=== PATIENT | female | born 1945 | race Caucasian/White ===

== ENCOUNTER 2018-11-22 00:56 | Outpatient (CLI) | payer OTHER, SELFPAY ==
--- NOTE | 2018-11-22 13:34 | DI.CTLCSR_ITS ---
SYMPTOM/DIAGNOSIS: CURRENT SMOKER, F17.210, SCREENING FOR LUNG CANCER LOW DOSE CHEST CT FOR LUNG CANCER SCREENING: A low dose technique CT was performed. There are bilateral breast implants. The heart size is normal. There are coronary artery calcifications as well as calcification at the aorta and branch vessels. No pleural or pericardial effusions are seen. There are underlying emphysematous changes, greater at the lung apices. There is mild apical pleural scarring. There is mild scarring at the inferomedial aspects of the lingula and right middle lobe. There are a few pulmonary calcifications. No non calcified pulmonary nodules are seen. IMPRESSION: Lung rads, category 1. Annual low dose screening CT is recommended. Lung-RAD Category: Lung RADS Category 1- Negative
== END 2018-11-22 01:16 ==
PROVIDERS: PCP Family Medicine; Visit Provider Family Medicine
DX: Z12.2 Encounter for screening for malignant neoplasm of respiratory organs (principal); F17.210 Nicotine dependence, cigarettes, uncomplicated; Z98.82 Breast implant status; J98.4 Other disorders of lung; I70.0 Atherosclerosis of aorta
CPT/HCPCS: G0297

== ENCOUNTER 2018-11-24 19:33 | Outpatient (REF) | payer OTHER, SELFPAY ==
[2018-11-24 18:38] LABS: Iron 39 ug/dL (50-175); Total Iron Binding Capacity 305 ug/dL (250-450); Transferrin Sat 13 % (15-50)
== END 2018-11-24 19:53 ==
LOC: NCHCN 19:33
PROVIDERS: PCP Family Medicine; Visit Provider Family Medicine
DX: G25.81 Restless legs syndrome (principal); E61.1 Iron deficiency
CPT/HCPCS: 83540; 83550

== ENCOUNTER 2019-04-27 17:38 | Emergency (ER) | payer OTHER, SELFPAY ==
[2019-04-27 17:38] VITALS: BP 144/53; PULSE 79; RESP 20; TEMP 36.5; O2SAT 93
--- NOTE | 2019-04-27 18:00 | ED.GENADUL_ITS ---
Discharge Plan Disposition Patient Disposition: HOME Condition: Stable Discharge Details Chief Complaint: GI Bleed Clinical Impression: Rectal bleed, Colitis Primary Care Provider: Pavan Ybarra ED Provider: Omega Wylie Home Meds and New Rx's Prescriptions: New ciprofloxacin HCl 500 mg tablet 500 mg PO BID Qty: 14 RF: 0 prednisone 20 mg tablet 60 mg PO DAILY 5 Days Qty: 15 RF: 0 metronidazole [Flagyl] 500 mg tablet 500 mg PO TID Qty: 21 RF: 0 Continued aspirin [Aspir-81] 81 mg tablet,delayed release (DR/EC) 81 mg PO DAILY Qty: 90 RF: 3 nitroglycerin [Nitrostat] 0.4 mg tablet, sublingual 0.4 mg Sublingual Q5 MIN PRN X3 Qty: 25 RF: 5 sumatriptan succinate 50 mg tablet 50 mg PO DAILY Qty: 15 RF: 6 tramadol 50 mg tablet 50 mg PO TID MDD 150 mg PRN (Reason: pain) Qty: 30 RF: 4 lisinopril 20 mg tablet 20 mg PO DAILY Qty: 90 RF: 3 (DME) Nebulizer Qty: 1 RF: 0 ipratropium-albuterol 0.5 mg-3 mg(2.5 mg base)/3 mL solution for nebulization 3 ml IH Q4H PRN (Reason: wheezing) Qty: 180 RF: 3 Os-Richard 500 + D3 1 EACH tablet,chewable 1 ea PO DAILY RF: 0 CHROMIUM GTF 200 MCG tablet 200 mcg PO DAILY RF: 0 B Complex Plus Vitamin C 1 EACH capsule 1 ea PO DAILY RF: 0 nortriptyline 50 mg capsule 50 mg PO QHS Qty: 90 RF: 2 ferrous sulfate 325 mg (65 mg iron) tablet 325 mg PO BID Qty: 180 RF: 1 docusate sodium [Colace] 100 mg capsule 100 mg PO BID PRN (Reason: constipation) Qty: 180 RF: 1 atenolol [Tenormin] 100 mg tablet 100 mg PO BID Qty: 180 RF: 3 lovastatin 40 mg tablet 80 mg PO DAILY Qty: 180 RF: 3 albuterol sulfate [ProAir HFA] 90 mcg/actuation HFA aerosol inhaler 2 puff Inhalation Q4H PRN Qty: 1 RF: 6 Discharge Instructions Instructions: Rectal Bleeding (ED), Colitis (ED) Additional Instructions: follow up with your primary care provider as soon as possible if you have severe worsening pain, feel more weak or chest pain return to the emergency department Medical Decision Making 74 yo female with hx of copd, prior diverticulitis, htn, who comes in with abdominal pain and birght red blood per rectum for a day. She denies fevers, chills, chest pain, weakness. She does have bright red blood on internal rectal exam, no masses. She is tender in the llq no other pain elsehwere. Will obtain imaging to eval for diverticulitis and ct to eval for diverticulitis among other pathology. pt's labs show reassuring h/h. She remains stable, ct shows wall thickened stomach that is likely gastritis but malginancy can't be excluded. Has colitis as well. I recommended admission but pt declined at this time as she dosen't want to have any procedures at this time and wants to go home. She has capacity to make her own decisions and understands risks of leaving including and disability. I am going to start her on tx for the colitis with abx and steroids. I advised to f/u with pcp hardeep and return precautions given Differential Diagnosis Differential Diagnosis: diverticulitis, avm, tumor Medical Records Medical records reviewed: Yes I reviewed the patient's medical records. Imaging Data Radiologic Study: Attestation: I personally reviewed and interpreted this imaging study as follows: Imaging: CT Scan Radiologist's impression: IMPRESSION: 1. Small hiatal hernia. 2. Diffuse wall thickening in the stomach. Finding likely represents gastritis. Please note that malignancy cannot be excluded through imaging. 3. Aneurysmal dilatation of infrarenal aorta measuring 3.5 x 3.1 cm. No evidence of rupture. 4. Significant diffuse wall thickening in the colon extending from mid transverse colon to the rectum. Finding is consistent with colitis. Lab Data Lab results reviewed: Yes I reviewed the patient's lab results. HPI General Mode of arrival: EMS . Date/Time Provider Initiated Documentation: 04/27/19 17:52 . Limitations to Documentation: no limitations . Information obtained by: patient . History of Present Illness 74 year old F presents to the emergency department with the chief complaint of rectal bleeding, described as moderate, and it has been intermittent. No relieving factors improve symptom(s), No exacerbating factors reported . Patient did receive the following treatments prior to arrival, none Related Data Home Medications Medication Instructions Recorded Confirmed Os-Richard 500 + D3 1 ea PO DAILY tab.chew 07/03/12 02/07/19 Chromium Gtf 200 mcg PO DAILY 09/25/13 02/07/19 B Complex Plus Vitamin C 1 ea PO DAILY cap 05/13/15 04/27/19 aspirin 81 mg tablet,delayed 81 mg PO DAILY #90 tab-cap 03/14/18 04/27/19 release nitroglycerin 0.4 mg sublingual 0.4 mg SUBLINGUAL Q5 MIN PRN X3 03/14/18 04/27/19 tablet #25 tab sumatriptan succinate 50 mg tablet 50 mg PO DAILY #15 tab-cap 03/14/18 04/27/19 nortriptyline 50 mg capsule 50 mg PO QHS #90 cap 09/22/18 04/27/19 tramadol 50 mg tablet 50 mg PO TID PRN #30 tab MDD 150 mg 11/24/18 04/27/19 docusate sodium 100 mg capsule 100 mg PO BID PRN #180 cap 11/25/18 04/27/19 ferrous sulfate 325 mg (65 mg 325 mg PO BID #180 tab 11/25/18 04/27/19 iron) tablet Nebulizer #1 ea 12/16/18 02/07/19 ipratropium-albuterol 0.5 mg-3 3 ml IH Q4H PRN #180 ml 12/16/18 04/27/19 mg(2.5 mg base)/3 mL nebulization soln lisinopril 20 mg tablet 20 mg PO DAILY #90 tab 02/07/19 04/27/19 atenolol 100 mg tablet 100 mg PO BID #180 tab 03/17/19 04/27/19 lovastatin 40 mg tablet 80 mg PO DAILY #180 tab-cap 03/17/19 04/27/19 albuterol sulfate 90 mcg/actuation 2 puff INHALATION Q4H PRN #1 unit 03/21/19 04/27/19 aerosol inhaler ciprofloxacin HCl 500 mg PO BID #14 tab 04/27/19 metronidazole [Flagyl] 500 mg PO TID #21 tab 04/27/19 prednisone 60 mg PO DAILY 5 Days #15 tab 04/27/19 Previous Rx's Medication Instructions Recorded aspirin 81 mg tablet,delayed 81 mg PO DAILY #90 tab-cap 03/14/18 release nitroglycerin 0.4 mg sublingual 0.4 mg SUBLINGUAL Q5 MIN PRN X3 03/14/18 tablet #25 tab sumatriptan succinate 50 mg tablet 50 mg PO DAILY #15 tab-cap 03/14/18 nortriptyline 50 mg capsule 50 mg PO QHS #90 cap 09/22/18 tramadol 50 mg tablet 50 mg PO TID PRN #30 tab MDD 150 mg 11/24/18 docusate sodium 100 mg capsule 100 mg PO BID PRN #180 cap 11/25/18 ferrous sulfate 325 mg (65 mg 325 mg PO BID #180 tab 11/25/18 iron) tablet Nebulizer #1 ea 12/16/18 ipratropium-albuterol 0.5 mg-3 3 ml IH Q4H PRN #180 ml 12/16/18 mg(2.5 mg base)/3 mL nebulization soln lisinopril 20 mg tablet 20 mg PO DAILY #90 tab 02/07/19 atenolol 100 mg tablet 100 mg PO BID #180 tab 03/17/19 lovastatin 40 mg tablet 80 mg PO DAILY #180 tab-cap 03/17/19 albuterol sulfate 90 mcg/actuation 2 puff INHALATION Q4H PRN #1 unit 03/21/19 aerosol inhaler ciprofloxacin HCl 500 mg PO BID #14 tab 04/27/19 metronidazole [Flagyl] 500 mg PO TID #21 tab 04/27/19 prednisone 60 mg PO DAILY 5 Days #15 tab 04/27/19 Allergies Allergy/AdvReac Type Severity Reaction Status Date / Time sumatriptan [From Imitrex] Allergy Severe caused Verified 04/27/19 17:42 Heart Attack sumatriptan succinate Allergy Severe caused Verified 04/27/19 17:42 [From Imitrex] Heart Attack chicken derived Allergy Unknown unknown Verified 04/27/19 17:42 Sulfa (Sulfonamide Allergy Unknown unknown Verified 04/27/19 17:42 Antibiotics) amlodipine AdvReac Intermediate orthostatic Verified 04/27/19 17:42 hypotension promethazine HCl AdvReac Unknown GI upset Verified 04/27/19 17:42 [From Phenergan] General Stated Complaint: GI Bleed DONTE: 2 Review of Systems All systems reviewed & are unremarkable except as noted in HPI and below Constitutional Constitutional: Denies chills, Denies fever(s) and Denies weakness ENT Ears, Nose, Mouth, and Throat: Denies change in voice Cardiovascular Cardiovascular: Denies chest pain and Denies dyspnea Respiratory Respiratory: Denies cough and Denies dyspnea Gastrointestinal Gastrointestinal: Denies nausea and Denies vomiting Musculoskeletal Musculoskeletal: Denies joint swelling Neurologic Neurologic: Denies weakness Psychiatric Psychiatric: Denies depression Endocrine Endocrine: Denies cold intolerance and Denies heat intolerance [facility] Medical History (Updated 12/16/18 @ 10:00 by Pavan Ybarra DO) 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) Screening for colon cancer (Acute) Family History Mother , stroke at age 56. No problems noted. Father , HI at age 39. No problems noted. Sister , Cancer at age 60. No problems noted. Sister No problems noted. 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 smoke detector in home: Yes Fire extinguisher in home: Yes Carbon monox detector in home: Yes Do you feel safe at home: Yes Do you feel safe in your relationship?: Yes Exam Const General: no acute distress Orientation: alert HENNV Head: normal to inspection Ears: external ears normal General nose exam: external nose normal Mouth: moist mucous membranes Eyes General: appearance normal, both eyes and all related structures Neck Neck: normal visual inspection Resp Effort & Inspection: normal respiratory effort and able to speak in complete sentences Cardio Rate: regular rate GI Palpation: soft and tender Skin General skin exam: no rashes or lesions noted Neuro General: alert and oriented x3 Extrem General: normal to inspection Psych Mental Status: mental status grossly normal Course Vital Signs Vital signs: Vital Signs Temperature 36.5 C 04/27/19 17:38 Pulse 79 04/27/19 17:38 Respiratory Rate 20 04/27/19 17:38 Blood Pressure 144/53 H 04/27/19 17:38 Pulse Oximetry 93 L 04/27/19 17:38 Temperature 36.5 C 04/27/19 17:38 Temperature Source Temporal Artery Scan 04/27/19 17:38 Pulse 79 04/27/19 17:38 Respiratory Rate 04/27/19 17:38 Respiratory Effort Non-Labored 04/27/19 17:45 Blood Pressure 144/53 H 04/27/19 17:38 Blood Pressure Position Sitting 04/27/19 17:38 Pulse Oximetry 93 L 04/27/19 17:38 Oxygen Delivery Method Room Air 04/27/19 17:38 Oxygen Flow Rate 0 04/27/19 17:38 Pain Level 9 04/27/19 17:38
[2019-04-27] MEDS: Ondansetron 4 MG/2 ML VIAL IVP (18:10)
[2019-04-27] MEDS: fentaNYL 100 MCG/2 ML VIAL 50 MCG IVP (18:11)
[2019-04-27] MEDS: Normal Saline 1,000 ML 1000 ML IV (18:35)
[2019-04-27 18:46] LABS: Lactate 0.8 mmol/L (0.6-1.4)
[2019-04-27 18:48] LABS: Abs Immature Grans 0.05 k/cumm (0.0-0.09); Absolute Basophil Count 0.02 k/cumm (0.0-0.2); Absolute Eosinophil Count 0.03 k/cumm (0.0-0.7); Absolute Lymphocyte Count 1.53 k/cumm (1.2-3.4); Absolute Monocyte Count 0.75 k/cumm (0.11-0.7); Absolute Neutrophil Count 14.38 k/cumm (1.2-6.7); Basophils % 0.1; Eosinophils % 0.2; HCT 47.5 % (36.0-46.0); HGB 16.2 g/dL (12.0-15.5); Immature Grans % 0.3 %; Lymphocytes % 9.1; Mean Corp. HGB Concentration 34.1 g/dL (32.0-36.0); Mean Corpuscular Hemoglobin 30.4 pg (27.0-33.0); Mean Corpuscular Volume 89.1 fL (80-95); Mean Platelet Volume 9.5 fL (8.0-11.0); Monocytes % 4.5; Neutrophils % 85.8; Platelet Count 269 x1000/uL (130-400); RBC 5.33 m/cumm (4.00-5.20); RBC Distribution Width 13.7 % (11.7-14.6); White Blood Cell Count 16.76 k/cumm (4.4-10.8)
[2019-04-27 19:01] LABS: PTT Activated 23.4 sec (21.0-31.4); Prothrombin Time 9.7 sec (9.3-11.0)
[2019-04-27 19:03] LABS: ALT 13 U/L (14-59); AST 18 U/L (15-37); Albumin 3.4 g/dL (3.4-5.0); Alkaline Phosphatase 77 U/L (46-116); BUN 13 mg/dL (7-18); Bilirubin, Total 0.7 mg/dL (0.2-1.0); CREATININE 1.05 mg/dL (0.55-1.02); Calcium 9.2 mg/dL (8.5-10.1); Chloride 101 mmol/L (98-107); Estimated GFR 51.23 (mL/min/1.73m2); Glucose 144 mg/dL (74-106); Lipase 276 U/L (73-393); Potassium 3.6 mmol/L (3.5-5.1); Sodium 140 mmol/L (136-145); Total Protein 7.1 g/dL (6.4-8.2)
--- NOTE | 2019-04-27 19:28 | DI.CT_ITS ---
EXAM: CT ABDOMEN PELVIS W CLINICAL HISTORY: left lower abdominal pain TECHNIQUE: CT examination of the abdomen and pelvis was performed with intravenous infusion of 100 c c of Omnipaque 350. COMPARISON: No exams were available for comparison FINDINGS: The liver and spleen are unremarkable in appearance. Gallbladder is CT normal. There is extrahepat ic biliary dilatation at 9-10 millimeters. Spleen is unremarkable in appearance. Pancreas appears i ntact. No pancreatic ductal dilatation. Adrenals and kidneys are unremarkable. No evidence of urin fredo tract obstruction or calcification. There is a 3.5 cm in diameter infrarenal abdominal aortic aneurysm. Significant calcifications of th e origins of the renal arteries noted bilaterally. Possible proximal SMA stenosis. Stenosis of righ t and left common iliac arteries less than 50 percent luminal diameter. There is question of gastric wall thickening raising the possibility of gastritis. Proximal small светлана wel wall thickening also noted. Ascending colon is unremarkable. Appendix is normal. There is marvin re wall edema with marked pericolonic fat infiltration extending from mid transverse colon to the lev el of the sigmoid suggestive of colitis. Moderate free fluid in the pelvis. IMPRESSION: 1. Possible gastritis and small-bowel enteritis. 2. Severe colitis extending from transverse colon to sigmoid colon, etiology uncertain. 3. 3.5 cm abdominal aortic aneurysm. 4. Mild biliary ductal dilatation, ultrasound correlation suggested.
[2019-04-27] MEDS: Omnipaque 350 MG/ML 100 ML BTL IJ (19:29)
--- NOTE | 2019-04-27 19:44 | DI.VRAD_ITS ---
PROCEDURE INFORMATION: Exam: CT Abdomen And Pelvis With Contrast Exam date and time: 04/27/2019 6:00 PM Age: 74 years old Clinical indication: Localized; Patient HX: Blood in stool x2 days, weakness. Lower abdominal pain. TECHNIQUE: Imaging protocol: Computed tomography of the abdomen and pelvis with intravenous contrast. Radiation optimization: All CT scans at this facility use at least one of these dose optimization techniques: automated exposure control; mA and/or kV adjustment per patient size (includes targeted exams where dose is matched to clinical indication); or iterative reconstruction. Contrast material: OMNIPAQUE 350; Contrast volume: 80 ml; Contrast route: IV; COMPARISON: No relevant prior studies available. FINDINGS: Mediastinum: Small hiatal hernia. Liver: Normal. No mass. Gallbladder and bile ducts: Normal. No calcified stones. No ductal dilation. Pancreas: Normal. No ductal dilation. Spleen: Normal. No splenomegaly. Adrenals: Normal. No mass. Kidneys and ureters: Normal. No hydronephrosis. Stomach and bowel: Diffuse wall thickening in the stomach. Significant diffuse wall thickening in the colon extending from mid transverse colon to the rectum. No wall thickening in the small bowel. No evidence of small bowel obstruction. Appendix: No distended tubular structure in right lower quadrant. No inflammatory changes seen in right lower quadrant. No findings to suggest acute appendicitis. Intraperitoneal space: Small amount of free fluid in pelvis. Findings likely secondary to colitis. Vasculature: Aneurysmal dilatation of infrarenal aorta measuring 3.5 x 3.1 cm. No evidence of rupture. Lymph nodes: Unremarkable. No enlarged lymph nodes. Bladder: Unremarkable as visualized. Reproductive: Unremarkable as visualized. Bones/joints: Degenerative changes in the spine. No evidence of fracture. Soft tissues: Unremarkable. IMPRESSION: 1. Small hiatal hernia. 2. Diffuse wall thickening in the stomach. Finding likely represents gastritis. Please note that malignancy cannot be excluded through imaging. 3. Aneurysmal dilatation of infrarenal aorta measuring 3.5 x 3.1 cm. No evidence of rupture. 4. Significant diffuse wall thickening in the colon extending from mid transverse colon to the rectum. Finding is consistent with colitis. Dictated and Authenticated by: Vega Medrano MD. Ordering:MARLINE Duff MD
[2019-04-27] MEDS: metroNIDAZOLE 500 MG TAB PO (20:02)
[2019-04-27] MEDS: Ciprofloxacin 500 MG TAB PO (20:02)
[2019-04-27] MEDS: predniSONE 20 MG TAB 60 MG PO (20:02)
[2019-04-27 20:03] VITALS: BP 156/72; PULSE 83; RESP 18; TEMP 36.7; O2SAT 94
--- NOTE | 2019-04-27 20:55 | NUR.NOTE ---
Referral faxed to [facility] Dr. Ybarra.Nursing Note:
== END 2019-04-27 20:10 | disposition home or self-care (01) ==
PROVIDERS: Emergency Provider Emergency Medicine; PCP Family Medicine
DX: K62.5 Hemorrhage of anus and rectum (principal); K52.9 Noninfective gastroenteritis and colitis, unspecified; R10.32 Left lower quadrant pain; J44.9 Chronic obstructive pulmonary disease, unspecified; I10 Essential (primary) hypertension; F17.210 Nicotine dependence, cigarettes, uncomplicated
CPT/HCPCS: 36415; 80053; 83690; 96361; 96374; 96375; 99285; 74177; 83605; 85025; 85610; 85730; J2405; J3010; J3490; J7512

== ENCOUNTER 2019-05-03 13:52 | Outpatient (REF) | payer OTHER, SELFPAY ==
[2019-05-04 11:21] LABS: Campylobacter PCR Negative (Negative); Salmonella PCR Negative (Negative); Shiga Toxin PCR Negative (Negative); Shigella/Enteroinvasive Ecoli Negative (Negative)
== END 2019-05-03 14:12 ==
LOC: LBN 13:52
PROVIDERS: PCP Family Medicine; Visit Provider Family Medicine
DX: K52.9 Noninfective gastroenteritis and colitis, unspecified (principal)
CPT/HCPCS: 87329; 87505; 87324

== ENCOUNTER → 2019-07-20 14:21 | Outpatient (BNVA) | payer OTHER, SELFPAY | PROVIDERS: PCP Family Medicine; Referring Provider Family Medicine; Visit Provider Psychiatry & Neurology Neurology | DX: G44.40 Drug-induced headache, not elsewhere classified, not intractable (principal); G25.81 Restless legs syndrome; G43.109 Migraine with aura, not intractable, without status migrainosus; G43.009 Migraine without aura, not intractable, without status migrainosus; G60.9 Hereditary and idiopathic neuropathy, unspecified; E61.1 Iron deficiency; I10 Essential (primary) hypertension; J44.9 Chronic obstructive pulmonary disease, unspecified; F17.210 Nicotine dependence, cigarettes, uncomplicated | CPT/HCPCS: 99205; 99443 ==

== ENCOUNTER 2019-08-15 14:17 | Outpatient (REF) | payer OTHER, SELFPAY ==
[2019-08-15 16:07] LABS: Bilirubin Negative (Negative); Blood Negative (Negative); Clarity Clear (Clear); Glucose Negative (Negative); Ketones Negative (Negative); Leukocyte Esterase Negative (Negative); Nitrite Negative (Negative); Specific Gravity 1.015 (1.005-1.025); Urobilinogen 0.2 EU/dL (Up TO 0.2)
== END 2019-08-15 14:37 ==
LOC: LBN 14:17
PROVIDERS: PCP Family Medicine; Visit Provider Family Medicine
DX: R30.0 Dysuria (principal)
CPT/HCPCS: 81003

== ENCOUNTER → 2019-08-30 13:49 | Outpatient (BNVA) | payer OTHER, SELFPAY | PROVIDERS: PCP Family Medicine; Referring Provider Family Medicine; Visit Provider Psychiatry & Neurology Neurology | DX: G44.40 Drug-induced headache, not elsewhere classified, not intractable; G43.109 Migraine with aura, not intractable, without status migrainosus; G43.009 Migraine without aura, not intractable, without status migrainosus; G60.9 Hereditary and idiopathic neuropathy, unspecified; G25.81 Restless legs syndrome; E61.1 Iron deficiency; J44.9 Chronic obstructive pulmonary disease, unspecified; I10 Essential (primary) hypertension | CPT/HCPCS: 99214 ==

== ENCOUNTER → 2019-10-16 08:39 | Outpatient (BNVA) | payer OTHER, SELFPAY | PROVIDERS: PCP Family Medicine; Referring Provider Family Medicine; Visit Provider Nurse Practitioner Adult Health | DX: G43.901 Migraine, unspecified, not intractable, with status migrainosus (principal); G44.40 Drug-induced headache, not elsewhere classified, not intractable; J44.9 Chronic obstructive pulmonary disease, unspecified; I10 Essential (primary) hypertension | CPT/HCPCS: 99213; J1885; 96372 ==

== ENCOUNTER 2019-10-18 02:19 | Outpatient (CLI) | payer OTHER, SELFPAY ==
--- NOTE | 2019-10-18 08:15 | DI.RAD_ITS ---
EXAM: XR LUMBAR SPINE COMPLETE CLINICAL HISTORY: Worsening chronic pain, mid lumbar spine, lumbago, M54.5. TECHNIQUE: 2D digital imaging was performed. COMPARISON: No exams were available for comparison FINDINGS: There are 5 lumbar type vertebral bodies. No spondylolysis or spondylolisthesis is seen. There is d isc space narrowing at L1-L2. There are osteophytes at the endplates throughout the lumbar spine the re is facet arthropathy throughout the lumbar spine. No acute fractures or subluxations of the lumba r spine are noted. There is a mild scoliosis of thoracolumbar spine. There is an infrarenal abdomin al aortic aneurysm measuring 4 cm. IMPRESSION: 1. Moderately severe degenerative changes in the lumbar spine. 2. Infrarenal abdominal aortic aneurysm. Ultrasound or CT scan may be obtained for further evaluatio n. DATA REPOSITORY: RADIATION DOSE DELIVERED:
== END 2019-10-18 02:39 ==
PROVIDERS: PCP Family Medicine; Visit Provider Family Medicine
DX: M54.5 Low back pain (principal); G89.29 Other chronic pain; M51.36 Other intervertebral disc degeneration, lumbar region; M47.816 Spondylosis without myelopathy or radiculopathy, lumbar region; I71.4 Abdominal aortic aneurysm, without rupture
CPT/HCPCS: 72110

== ENCOUNTER 2019-11-13 01:25 | Outpatient (CLI) | payer OTHER, SELFPAY ==
--- NOTE | 2019-11-13 07:15 | DI.US_ITS ---
EXAM: US AAA DIAGNOSTIC CLINICAL HISTORY: 4 cm incidental finding on xray, needs follow-uP,AAA,I71.4 COMPARISON: No exams were available for comparison FINDINGS: Abdominal Aorta: Proximal: 2.7 cm Mid: 2.6 cm Distal: 3.3 cm Iliac's: Right: 0.8 cm Left: 0.9 cm There is calcification along the wall of the aorta. There is mural thrombus seen distally. IMPRESSION: 3.3 centimeter abdominal aortic aneurysm. DATA REPOSITORY:
== END 2019-11-13 01:45 ==
PROVIDERS: PCP Family Medicine; Visit Provider Family Medicine
DX: I71.4 Abdominal aortic aneurysm, without rupture (principal)
CPT/HCPCS: 76775

== ENCOUNTER → 2019-12-07 09:01 | Outpatient (BNVA) | payer OTHER, SELFPAY | PROVIDERS: PCP Family Medicine; Referring Provider Family Medicine; Visit Provider Nurse Practitioner Adult Health | DX: G43.009 Migraine without aura, not intractable, without status migrainosus (principal); I10 Essential (primary) hypertension | CPT/HCPCS: 99212 ==

== ENCOUNTER 2020-09-12 11:19 | Outpatient (CLI) | payer OTHER, SELFPAY ==
--- NOTE | 2020-09-12 09:07 | DI.RAD_ITS ---
Exam(s) XR HIP RT COMPLETE AP PELVIS EXAM: XR HIP RT COMPLETE AP PELVIS CLINICAL HISTORY: ACUTE RT HIP PAIN, M25.551 TECHNIQUE: COMPARISON: No exams were available for comparison FINDINGS: Four views were obtained. There appears to be slight narrowing of the cartilaginous joint spaces of both hips superiorly. Mild marginal osteophyte formation of the femoral heads and acetabula noted. Moderate hypertrophic spurring of the greater trochanters of the femurs also noted bilaterally. IMPRESSION: Mild DJD both hips. RADIATION DOSE DELIVERED: Total DLP
== END 2020-09-12 11:39 ==
PROVIDERS: PCP Family Medicine; Visit Provider Internal Medicine
DX: M25.551 Pain in right hip (principal); M16.0 Bilateral primary osteoarthritis of hip
CPT/HCPCS: 73502

== ENCOUNTER → 2020-10-10 03:04 | Outpatient (CLI) | payer OTHER, SELFPAY ==
--- NOTE | 2020-10-10 07:15 | DI.MRI_ITS ---
Exam(s) MR LOWER JOINT RT WO EXAM: MR LOWER JOINT RT WO CLINICAL HISTORY: Acute R-sided hip pain, r/o stress frx.M25.551 TECHNIQUE: Multiplanar multisequence MRI of the right hip was performed. COMPARISON: CR XR HIP RT COMPLETE AP PELVIS from 09/12/2020 CR XR HIP RT COMPLETE AP PELVIS from 09/12/2020 FINDINGS: EFFUSION: There is a minimal amount of increased joint fluid but no prominent hip joint effusion. MARROW: There is no evidence of fracture or avascular necrosis. No lytic osseous lesions. No osteo phytes. ARTICULATION: Mild generalized cartilage loss. There are no degenerative subarticular cysts in the a cetabulum nor in the right femoral head. No obvious osteophytes. There is a small bony excrescence off the anterior aspect of the femoral neck at the head-neck junction. No abnormal thickening of the ligamentum teres nor prominent signal abnormality at the fovea centrali s. LABRUM: Fluid signal is seen interposed between the glenoid and labrum superiorly, consistent with la bral tear at this level. There is no paralabral cyst. SOFT TISSUES: Mild increased signal in the gluteus medius tendon. No prominent fluid collection. No abnormal intraosseous signal in the greater trochanter. No evidence of iliopsoas bursitis. No abnormal signal at the level of the ischial tuberosity and common hamstrings tendon insertion. No abnormal intramuscular signal. No regional lymphadenopathy. IMPRESSION: 1. Mild degenerative changes. Superior labral tearing. No paralabral cyst. 2. No degenerative subarticular cyst nor osteophytes evident although there is a small bony excrescen ce off the anterior femoral neck which may indicate an element of chronic CAM-type AYSE. 3. No evidence of avascular necrosis or stress fracture. No osseous lesions 4. No prominent joint effusion DATA REPOSITORY:
== END ==
PROVIDERS: PCP Family Medicine; Visit Provider Family Medicine
DX: S73.101A Unspecified sprain of right hip, initial encounter (principal); M16.11 Unilateral primary osteoarthritis, right hip; X58.XXXA Exposure to other specified factors, initial encounter
CPT/HCPCS: 73721

== ENCOUNTER 2022-01-27 13:30 | Emergency (ER) | payer MEDICARE, SELFPAY ==
[2022-01-27 13:45] VITALS: BP 188/96; PULSE 66; RESP 18; TEMP 36.7; O2SAT 98
--- NOTE | 2022-01-27 14:00 | DI.CT_ITS ---
Exam(s) CT ABDOMEN PELVIS W EXAM: CT ABDOMEN PELVIS W INDICATION: left flank and lower quadrant pain. COMPARISON: CT CT ABDOMEN PELVIS W from 04/27/2019 TECHNIQUE: FINDINGS: CT examination of the abdomen and pelvis was performed with intravenous infusion of 100 cc of Omnipaq ue 350. Images obtained through the lung bases are unremarkable. The liver is unremarkable in appearance. Gallbladder is unremarkable, there is mild biliary dilatation with the common duct measuring about 12 millimeters in greatest diameter, this finding was also noted on examination of April 2019.. Pancreas appears normal. Spleen is unremarkable in appearance. Adrenals appear normal. Right kidney appears normal, no right hydronephrosis, nephrolithiasis, or renal mass. There is severe left hydronephrosis, there is probable obstruction at the level of the UPJ. There is moderate perinephric fluid collection on the left presumably in disc gating caliceal rupture. No de finite calcification identified in left kidney or ureter. Nephrogram appears symmetrical with the ri ght kidney.urinary bladder unremarkable. Abdominal aorta is mildly aneurysmal at 3.5 cm diameter, moderate atheromatous changes noted in the a bdominal arterial vasculature period and no other major vascular abnormality is seen. No abdominal wall hernia. No abdominal or pelvic adenopathy. Uterus is atrophic or absent. Appendix is not specifically visualized but there is no evidence of appendicitis... No evidence of d iverticulitis or bowel obstruction. There is a small quantity of free fluid pelvis. IMPRESSION: Severe left hydronephrosis with perinephric fluid collection as described above. Presumed obstructio n at the level of the UPJ. No definite stone disease. Stable mild dilatation of extrahepatic biliary ductal system. RADIATION DOSE DELIVERED: 496.2mGy.cm Total DLP 496.2mGy.cm Total DLP !Error CTDIvol RADIATION OPTIMIZATION: All CT scans at this facility use at least one of these dose optimization te chniques: automated exposure control; mA and/or kV adjustment per patient size (includes targeted exa ms where dose is matched to clinical indication); or iterative reconstruction.
[2022-01-27] MEDS: Normal Saline 500 ML IV (14:32)
[2022-01-27] MEDS: fentaNYL 100 MCG/2 ML VIAL 50 MCG IVP ×2 (14:33→16:28)
[2022-01-27 14:47] LABS: Bilirubin Negative (Negative); Blood Negative (Negative); Clarity Clear (Clear); Glucose Negative (Negative); Ketones Negative (Negative); Leukocyte Esterase Negative (Negative); Nitrite Negative (Negative); Urobilinogen 0.2 EU/dL (Up TO 0.2)
[2022-01-27 14:47] LABS: Abs Immature Grans 0.07 10^3/uL (0.0-0.06); Absolute Basophil Count 0.08 10^3/uL (0.0-0.2); Absolute Monocyte Count 0.75 10^3/uL (0.1-0.8); Absolute Neutrophil Count 12.45 10^3/uL (1.2-6.7); Basophils % 0.5; Eosinophils % 0.9; HCT 48.8 % (36.0-46.0); HGB 16.1 g/dL (11.2-15.7); Immature Grans % 0.5; Lymphocytes % 11.8; MCH 29.3 pg (27.0-33.0); MCV 89 fL (80-95); MPV 9.2 fL (8.0-11.0); Monocytes % 4.9; Neutrophils % 81.4; Platelet Count 290 10^3/uL (130-400); RDW 13.2 % (11.7-14.6); RDW-SD 43.2 fL; WBC 15.29 10^3/uL (4.4-10.8)
[2022-01-27 14:48] LABS: Absolute Eosinophil Count 0.14 10^3/uL (0.0-0.7)
[2022-01-27 15:01] LABS: ALT 14 U/L (14-59); AST 21 U/L (15-37); Albumin 3.7 g/dL (3.4-5.0); Alkaline Phosphatase 70 U/L (46-116); Anion Gap 5.5 mmol/L (3-11); BUN 10 mg/dL (7-18); Bilirubin, Total 0.8 mg/dL (0.2-1.0); CO2 32.5 mmol/L (21.0-32.0); CREATININE 1.1 mg/dL (0.55-1.02); Calcium 9.7 mg/dL (8.5-10.1); Chloride 99 mmol/L (98-107); Estimated GFR 52.08 (mL/min/1.73m2); Glucose 123 mg/dL (74-106); Lipase 266 U/L (73-393); Potassium 4.1 mmol/L (3.5-5.1); Sodium 137 mmol/L (136-145); Total Protein 7.8 g/dL (6.4-8.2)
--- NOTE | 2022-01-27 15:35 | ED.GENADUL_ITS ---
Discharge Plan Disposition Patient Disposition: HOME Condition: Serious Discharge Details Clinical Impression: Obstruction of left ureteropelvic junction (UPJ), Hydronephrosis, left Primary Care Provider: Pavan Ybarra ED Provider: Shereen Thomason Home Meds and New Rx's Prescriptions: Continued aspirin [Aspir-81] 81 mg tablet,delayed release (DR/EC) 81 mg PO DAILY Qty: 90 3RF Hold Instructions: Home Medication placed on hold at Doctor's office nitroglycerin [Nitrostat] 0.4 mg tablet, sublingual 0.4 mg Sublingual Q5 MIN PRN X3 Qty: 25 5RF Hold Instructions: Home Medication placed on hold at Doctor's office Rx Instructions: take one tab for chest pain, call 911, may repeat tab q5mins prn for two more doses lovastatin 40 mg tablet 80 mg PO DAILY Qty: 180 3RF Hold Instructions: Home Medication placed on hold at Doctor's office Rx Instructions: two tablets daily to reduce risk of recurrent cardiovascular events (DME) Nebulizer Qty: 1 0RF Rx Instructions: As directed, Q4 prn dyspnea ipratropium-albuterol 0.5 mg-3 mg(2.5 mg base)/3 mL solution for nebulization 3 ml IH Q4H PRN (Reason: wheezing) Qty: 180 3RF naproxen 500 mg tablet 500 mg PO BID PRN (Reason: pain) Qty: 60 0RF atenolol 100 mg tablet 100 mg PO DAILY Qty: 90 3RF tramadol 50 mg tablet 50 mg PO TID PRN (Reason: pain) Qty: 30 3RF Os-Richard 500 + D3 1 EACH tablet,chewable 1 ea PO DAILY Hold Instructions: Home Medication placed on hold at Doctor's office B Complex Plus Vitamin C 1 EACH capsule 1 ea PO DAILY Hold Instructions: Home Medication placed on hold at Doctor's office lisinopril 20 mg tablet 20 mg PO DAILY Qty: 90 3RF Hold Instructions: Home Medication placed on hold at Doctor's office albuterol sulfate [ProAir HFA] 90 mcg/actuation HFA aerosol inhaler 2 puff Inhalation Q4H PRN Qty: 2 6RF Rx Instructions: for reactive airways, wheezing Discharge Instructions Instructions: Kidney Stones (ED), Hydronephrosis (ED) Additional Instructions: Please call the urology office in the morning to have an appointment in the next 24 to 48 hours. Take the medications as directed. Please return to the ER any sooner for worsening pain, fever unable to get in with urology, or any concerns. The CT shows an obstruction in your left ureter and fluid back up into your left kidney.. Follow up with Primary care /Urology in 24-48 hours. Referrals: Ralph Kwong MD [ [facility] STAFF PHYSICIAN] - 1 day Discharge Data Discharge Date/Time-TO BE ENTERED AT DEPARTURE: 01/27/22 21:04 Medical Decision Making <SHERLY Strong - Last Filed: 01/28/22 09:26> Patient appears well but is exquisitely tender in her left lower quadrant, she is pending CT scan at this time She is received 50 of fentanyl Care of a transition to [facility] pending CT scan <Shereen Thomason NP - Last Filed: 01/27/22 21:23> Medical Records Medical records reviewed: Yes I reviewed the patient's medical records. Medical records narrative: 1612: Care assumed from provider (SHERLY Strong) Please see their initial HPI, PE, and documentation. Discussed patient details and case and pending workup and disposition. Patient is hemodynamically stable, and alert and or iented. At the time of signout patient is having episode of emesis Zofran was ordered by my colleague in the EKG. At the time of signout we are awaiting CT abdomen pelvis. 1904: Spoke with Patient and family regarding CT results, they verbalized understanding. 1905: [facility] contacted for Urology consult and transfer request. 1936: Dr. Gatica with urology at [facility] consulted, she recommends it is reasonable for reevaluation proximately 24 hours for possible stent placement she does not recommend emergent transfer for stent placement at this time. I will discuss possible admission with patient for pain control and observation repeat labs. Discussed plan of care with patient and recommendations. She does not want to be admitted into the hospital but is willing to have close follow-up with urology in the next 24 to [address] her on a care management list and send her home with pain medication and nausea medication. I did also encourage her to return to ER if she is unable to get in with urology. Imaging Data Radiologic Study: Imaging: CT Scan Radiologist's impression: COMPARISON: CT ABDOMEN PELVIS W 04/27/2019 7:28 PM FINDINGS: Lungs: Scarring at the lung bases associated with significant emphysematous disease. Liver: Homogeneously enhances without mass. Gallbladder and bile ducts: Status post cholecystectomy. Mild intra and extrahepatic biliary dilatation. No calcified stone within the common bile duct. Pancreas: No mass or peripancreatic edema. Spleen: Homogeneously enhances. No splenomegaly. Adrenal glands: No adrenal nodule. Kidneys and ureters: There is significant left-sided hydronephrosis which can be followed to the left ureteral pelvic junction. There is a mild to moderate amount of left perinephric fluid which extends inferiorly into the infrarenal space. There are relatively symmetric nephrograms. No definite renal or ureteral stone. Stomach and bowel: Moderate fecal loading. No bowel wall thickening or dilatation. Appendix: No evidence of appendicitis. Intraperitoneal space: Small amount of free fluid in the pelvis. No free intraperitoneal air. Vasculature: There is a stable infrarenal abdominal aortic aneurysm which measures up to 3.5 cm and contains a moderate amount of thrombus. No signs of impending aortic rupture. Lymph nodes: No significant adenopathy. Urinary bladder: No definite bladder wall thickening. Reproductive: Status post hysterectomy. Bones/joints: Lower lumbar facet arthropathy. Significant degenerative disc disease at the thoracolumbar junction. Additional degenerative disc disease at L5-S1. Soft tissues: Extra-abdominal soft tissues are unremarkable. IMPRESSION: 1. Obstruction at the level of the left ureteral pelvic junction with associated probable pyelosinus reflux from caliceal rupture and secondary free fluid. 2. Stable 3.5 cm infrarenal abdominal aortic aneurysm. Thank you for allowing us to participate in the care of your patient. Dictated and Authenticated by: Hakan Chu MD Lab Data Lab results reviewed: Yes I reviewed the patient's lab results. Labs: Laboratory Tests Range/Units 01/27/22 01/27/22 01/27/22 14:20 14:30 14:30 WBC (4.4-10.8) 10^3/uL 15.29 H RBC (3.93-5.22) 10^6/uL 5.50 H Hgb (11.2-15.7) g/dL 16.1 H Hct (36.0-46.0) % 48.8 H MCV (80-95) fL 89 MCH (27.0-33.0) pg 29.3 MCHC (32.0-36.0) % 33.0 RDW (11.7-14.6) % 13.2 Plt Count (130-400) 10^3/uL 290 MPV (8.0-11.0) fL 9.2 Immature Gran % 0.5 Neutrophils % 81.4 Lymphocytes % 11.8 Monocytes % 4.9 Eosinophils % 0.9 Basophils % 0.5 Nucleated RBC % (0.0-0.3) % 0.0 Absolute Neutrophils (1.2-6.7) 10^3/uL 12.45 H Absolute Lymphocytes (1.2-3.4) 10^3/uL 1.80 Absolute Monocytes (0.1-0.8) 10^3/uL 0.75 Absolute Eosinophils (0.0-0.7) 10^3/uL 0.14 Absolute Basophils (0.0-0.2) 10^3/uL 0.08 Sodium (136-145) mmol/L 137 Potassium (3.5-5.1) mmol/L 4.1 Chloride (98-107) mmol/L 99 Carbon Dioxide (21.0-32.0) mmol/L 32.5 H Anion Gap (3-11) mmol/L 5.5 BUN (7-18) mg/dL 10 Creatinine (0.55-1.02) mg/dL 1.1 H Est GFR (CKD-EPI 2020) (mL/min/1.73m2) 52.08 Glucose (74-106) mg/dL 123 H Calcium (8.5-10.1) mg/dL 9.7 Total Bilirubin (0.2-1.0) mg/dL 0.8 AST (15-37) U/L 21 ALT (14-59) U/L 14 Alkaline Phosphatase (46-116) U/L 70 Total Protein (6.4-8.2) g/dL 7.8 Albumin (3.4-5.0) g/dL 3.7 Lipase (73-393) U/L 266 Urine Color (Yellow) Yellow Urine Clarity (Clear) Clear Urine pH (5-8) 7.0 Ur Specific [place] (1.005-1.025) 1.020 Urine Protein (Negative) mg/dL Negative Urine Ketones (Negative) mg/dL Negative Urine Blood (Negative) Negative Urine Nitrite (Negative) Negative Urine Bilirubin (Negative) Negative Urine Urobilinogen (Up TO 0.2) EU/dL 0.2 Ur Leukocyte Esterase (Negative) Negative Urine Glucose (Negative) mg/dL Negative HPI <SHERLY Strong - Last Filed: 01/28/22 09:26> General Date/Time Provider Initiated Documentation: 01/27/22 14:09 . HPI Narrative: This 76-year-old female with history of COPD hyperlipidemia, hypertension, peripheral neuropathy, AAA presents with left lower quadrant pain. She states that this pain has been going on for the past 2 days. She denies history of similar pain in the past. Exacerbated with position change at night for movement. She denies any nausea or vomiting. She denies any urinary complaints. She describes the pain as sharp. Related Data Home Medications Medication Instructions Recorded Confirmed calcium carbonate-vitamin D3 500 1 ea PO DAILY 07/03/12 01/27/22 mg(1,250 mg)-600 unit chewable tablet (Os-Richard 500 + D3) vitamin B comp and C no.3 15 mg-10 1 ea PO DAILY 05/13/15 01/27/22 mg-50 mg-5 mg-300 mg capsule (B Complex Plus Vitamin C) aspirin 81 mg tablet,delayed 81 mg PO DAILY #90 tab-caps 03/14/18 01/27/22 release (Aspir-) nitroglycerin 0.4 mg sublingual 0.4 mg sublingual Q5 MIN PRN X3 03/14/18 01/27/22 tablet (Nitrostat) #25 tabs Nebulizer #1 ea 12/16/18 01/27/22 ipratropium 0.5 mg-albuterol 3 mg 3 ml inhalation Q4H PRN wheezing 12/16/18 01/27/22 (2.5 mg base)/3 mL nebulization #180 mL soln lovastatin 40 mg tablet 80 mg PO DAILY #180 tab-caps 03/04/20 01/27/22 naproxen 500 mg tablet 500 mg PO BID PRN pain #60 tabs 10/03/20 01/27/22 atenolol 100 mg tablet 100 mg PO DAILY #90 tabs 05/27/21 01/27/22 tramadol 50 mg tablet 50 mg PO TID PRN pain #30 tabs 11/11/21 01/27/22 albuterol sulfate 90 mcg/actuation 2 puff inhalation Q4H PRN 01/21/22 01/27/22 aerosol inhaler (ProAir HFA) wheezing, shortness of breath #2 units lisinopril 20 mg tablet 20 mg PO DAILY #90 tabs 01/21/22 01/27/22 Previous Rx's Medication Instructions Recorded aspirin 81 mg tablet,delayed 81 mg PO DAILY #90 tab-caps 03/14/18 release (Aspir-) nitroglycerin 0.4 mg sublingual 0.4 mg sublingual Q5 MIN PRN X3 03/14/18 tablet (Nitrostat) #25 tabs Nebulizer #1 ea 12/16/18 ipratropium 0.5 mg-albuterol 3 mg 3 ml inhalation Q4H PRN wheezing 12/16/18 (2.5 mg base)/3 mL nebulization #180 mL soln lovastatin 40 mg tablet 80 mg PO DAILY #180 tab-caps 03/04/20 naproxen 500 mg tablet 500 mg PO BID PRN pain #60 tabs 10/03/20 atenolol 100 mg tablet 100 mg PO DAILY #90 tabs 05/27/21 tramadol 50 mg tablet 50 mg PO TID PRN pain #30 tabs 11/11/21 albuterol sulfate 90 mcg/actuation 2 puff inhalation Q4H PRN 01/21/22 aerosol inhaler (ProAir HFA) wheezing, shortness of breath #2 units lisinopril 20 mg tablet 20 mg PO DAILY #90 tabs 01/21/22 Allergies Allergy/AdvReac Type Severity Reaction Status Date / Time sumatriptan [From Imitrex] Allergy Severe caused Verified 01/27/22 13:49 Heart Attack chicken derived Allergy Unknown unknown Verified 01/27/22 13:49 Sulfa (Sulfonamide Allergy Unknown unknown Verified 01/27/22 13:49 Antibiotics) amlodipine AdvReac Intermediate orthostatic Verified 01/27/22 13:49 hypotension promethazine HCl AdvReac Unknown GI upset Verified 01/27/22 13:49 [From Phenergan] General Stated Complaint: Abd Prob DONTE: 3 Review of Systems <SHERLY Strong - Last Filed: 01/28/22 09:26> All systems reviewed & are unremarkable except as noted in HPI and below PFSH <SHERLY Strong - Last Filed: 01/28/22 09:26> All Active Problems (Updated 01/27/22 @ 19:45 by Shereen Thomason NP) Obstruction of left ureteropelvic junction (UPJ) (Acute) Hydronephrosis, left (Acute) Degenerative tear of acetabular labrum of right hip (Acute) MRI 10/07 AAA (abdominal aortic aneurysm) (Chronic) Incidental 4 cm finding in October 2019 Iron deficiency (Acute) Chronic low back pain (Acute 04/19/70) initial industrial accident in [place] ~1970; sacral/lumbar Chronic alcoholism in remission (Acute 10/24/12) no alcohol since 1981 Atherosclerosis of [place] coronary artery of [place] heart without angina pectoris (Acute 04/19/97) First [place] 1997; stent Apr 1999 RCA 90%, [facility]; MPI 07/2008: neg ischemia, nl wall motion; EF 74% History of Surgical Procedure (Chronic) a. Left rotator cuff surgery. b. Bilateral mastectomy. c. Abdominal hysterectomy. d. Carpal tunnel release surgery. CAD (coronary artery disease) (Chronic) Fibromyalgia (Chronic) Hypertension (Chronic) Hyperlipidemia (Chronic) GERD (gastroesophageal reflux disease) (Chronic) Restless legs syndrome (Chronic) Tobacco dependence (Acute 06/18/11) Idiopathic peripheral neuropathy (Acute 06/18/11) Non-rheumatic mitral regurgitation (Acute) mild on ECHO [facility] 2009; Repeat 03/2016: mild MR, TR, mod incr PA pressure Osteoporosis, unspecified (Acute 06/18/11) Other chronic pain (Acute 06/18/11) OPIATES OFF AND ON SINCE 1970; AT LEAST from 2005 to Mar 2014; TRAMADOL DAYS PRN; extra strength tylenol Migraine headache without aura (Acute) Migraine headache with aura (Acute) Chronic headache (Acute) Medication overuse headache (Acute) 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) Screening for colon cancer (Acute) Angina pectoris (Acute 12/04/13) Migraine, unspecified, not intractable, without status migrainosus (Acute 06/18/11) last neuro [place] 01/2009 Pain, joint, multiple sites (Acute 06/18/11) paraspinal thoracic pain Extrapyramidal and movement disorder, unspecified (Acute 06/18/11) REstless Leg Syndrome Dry skin (Acute 03/06/16) Dermatitis (Acute 06/18/11) Chronic daily headache (Acute 07/19/15) Adjustment disorder, unspecified (Acute 04/27/16) Adenomatous polyp of colon (Acute 06/18/03) Saige Giordano, tubular adenoma rectum 2003; rpt 2008 neg, rpt 11/2013 neg for polyps, ? when repeat, neg FH Dyspnea (Acute) COPD (chronic obstructive pulmonary disease) (Chronic) Diverticulitis (Chronic) Pain, low back (Chronic) Surgical History H/O heart artery stent H/O resection of rib S/P bilateral breast implants S/p bilateral carpal tunnel release S/P bilateral mastectomy for cystic disease S/P craniotomy S/P hysterectomy S/P rotator cuff repair bilateral Family History Daughter Alcohol abuse Chronic headache Father Heart disease Mother Alcohol abuse Social History (Updated 09/19/20 @ 09:34 by Marli Gamez LPN) Smoking/Tobacco Use Status: Current every day Tobacco: How many years used: 68 Quit status: not considering quitting Smoking risk assessment performed?: Yes Alcohol Intake: never Drug use: Never Substance use type: does not use Household members: children Housing: house Number of Children: 2 Communication Needs: Corrective Lenses Pets and animals: Yes Pets and animals: cat(s) Current gender identity: female What is your relationship status?: Panel score (0-1 are the most socially isolated patients): 0 What type of physical activity do you participate in: none Seatbelt use: always 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 Working smoke detector in home: Yes Fire extinguisher in home: Yes Carbon monox detector in home: Yes Do you feel safe at home: Yes Do you feel safe in your relationship?: Yes Exam <SHERLY Strong - Last Filed: 01/28/22 09:26> Const General: cooperative, comfortable and frail appearing Eyes Sclera: sclerae normal Resp Effort & Inspection: normal respiratory effort Auscultation: clear to auscultation bilaterally Cardio Rate: regular rate Rhythm: regular rhythm GI Other: Left CVA and left lower quadrant tenderness on exam Skin General skin exam: no rashes or lesions noted Neuro General: patient alert and patient oriented x3 Extrem General: normal to inspection Course <SHERLY Strong - Last Filed: 01/28/22 09:26> Vital Signs Vital signs: Vital Signs Temperature 36.7 C 01/27/22 13:45 Pulse 66 01/27/22 13:45 Respiratory Rate 18 01/27/22 13:45 Blood Pressure 188/96 H 01/27/22 13:45 Pulse Oximetry 98 01/27/22 13:45 Temperature 36.7 C 01/27/22 13:45 Temperature Source Temporal Artery Scan 01/27/22 13:45 Pulse 66 01/27/22 13:45 Respiratory Rate 18 01/27/22 13:45 Respiratory Effort Non-Labored 01/27/22 13:50 Blood Pressure 188/96 H 01/27/22 13:45 Blood Pressure Position Sitting 01/27/22 13:45 Pulse Oximetry 98 01/27/22 13:45 Oxygen Delivery Method Room Air 01/27/22 13:45 Oxygen Flow Rate 0 01/27/22 13:45 Pain Level 9 01/27/22 14:43 Lab/Test Results Lab/Test Results: Laboratory Tests Range/Units 01/27/22 01/27/22 01/27/22 14:20 14:30 14:30 WBC (4.4-10.8) 10^3/uL 15.29 H RBC (3.93-5.22) 10^6/uL 5.50 H Hgb (11.2-15.7) g/dL 16.1 H Hct (36.0-46.0) % 48.8 H MCV (80-95) fL 89 MCH (27.0-33.0) pg 29.3 MCHC (32.0-36.0) % 33.0 RDW (11.7-14.6) % 13.2 Plt Count (130-400) 10^3/uL 290 MPV (8.0-11.0) fL 9.2 Immature Gran % 0.5 Neutrophils % 81.4 Lymphocytes % 11.8 Monocytes % 4.9 Eosinophils % 0.9 Basophils % 0.5 Nucleated RBC % (0.0-0.3) % 0.0 Absolute Neutrophils (1.2-6.7) 10^3/uL 12.45 H Absolute Lymphocytes (1.2-3.4) 10^3/uL 1.80 Absolute Monocytes (0.1-0.8) 10^3/uL 0.75 Absolute Eosinophils (0.0-0.7) 10^3/uL 0.14 Absolute Basophils (0.0-0.2) 10^3/uL 0.08 Sodium (136-145) mmol/L 137 Potassium (3.5-5.1) mmol/L 4.1 Chloride (98-107) mmol/L 99 Carbon Dioxide (21.0-32.0) mmol/L 32.5 H Anion Gap (3-11) mmol/L 5.5 BUN (7-18) mg/dL 10 Creatinine (0.55-1.02) mg/dL 1.1 H Est GFR (CKD-EPI 2020) (mL/min/1.73m2) 52.08 Glucose (74-106) mg/dL 123 H Calcium (8.5-10.1) mg/dL 9.7 Total Bilirubin (0.2-1.0) mg/dL 0.8 AST (15-37) U/L 21 ALT (14-59) U/L 14 Alkaline Phosphatase (46-116) U/L 70 Total Protein (6.4-8.2) g/dL 7.8 Albumin (3.4-5.0) g/dL 3.7 Lipase (73-393) U/L 266 Urine Color (Yellow) Yellow Urine Clarity (Clear) Clear Urine pH (5-8) 7.0 Ur Specific [place] (1.005-1.025) 1.020 Urine Protein (Negative) mg/dL Negative Urine Ketones (Negative) mg/dL Negative Urine Blood (Negative) Negative Urine Nitrite (Negative) Negative Urine Bilirubin (Negative) Negative Urine Urobilinogen (Up TO 0.2) EU/dL 0.2 Ur Leukocyte Esterase (Negative) Negative Urine Glucose (Negative) mg/dL Negative Sign Out <SHERLY Strong - Last Filed: 01/28/22 09:26> Sign Out Data: Sign Out Comment: pending ct abd/pelvis Last updated by Keira Saldaña PA at 01/27/22 16:10
--- NOTE | 2022-01-27 16:00 | RT.EKG_ITS ---
APPROVED REPORT Exam: Resting ECG Reason for Exam: nausea and vomiting Patient Location: E HR:59 bpm ECG Measurements Heart Rate 59 AXIS ID 152 P 82 QRSd 79 QRS 81 QT 426 T 72 QTc 423 Conclusion Sinus bradycardia...rate< 60 Consider left ventricular hypertrophy...(R aVL+S V3) >2.20mV
[2022-01-27] MEDS: Ondansetron 4 MG/2 ML VIAL IVP (16:29)
[2022-01-27] MEDS: Normal Saline 1,000 ML 1000 ML IV (16:31)
[2022-01-27 16:32] VITALS: BP 154/127; PULSE 62; RESP 20; O2SAT 96
[2022-01-27] MEDS: Omnipaque 350 MG/ML 100 ML BTL IJ (17:25)
--- NOTE | 2022-01-27 18:54 | DI.VRAD_ITS ---
PROCEDURE INFORMATION: Exam: CT Abdomen And Pelvis With Contrast Exam date and time: 01/27/2022 5:11 PM Age: 76 years old Clinical indication: Pain; Other: Flank TECHNIQUE: Imaging protocol: Computed tomography of the abdomen and pelvis with contrast. Total images: 1130 Radiation optimization: All CT scans at this facility use at least one of these dose optimization techniques: automated exposure control; mA and/or kV adjustment per patient size (includes targeted exams where dose is matched to clinical indication); or iterative reconstruction. Contrast material: OMNIPQUE 350; Contrast volume: 100 ml; Contrast route: INTRAVENOUS (IV); COMPARISON: CT ABDOMEN PELVIS W 04/27/2019 7:28 PM FINDINGS: Lungs: Scarring at the lung bases associated with significant emphysematous disease. Liver: Homogeneously enhances without mass. Gallbladder and bile ducts: Status post cholecystectomy. Mild intra and extrahepatic biliary dilatation. No calcified stone within the common bile duct. Pancreas: No mass or peripancreatic edema. Spleen: Homogeneously enhances. No splenomegaly. Adrenal glands: No adrenal nodule. Kidneys and ureters: There is significant left-sided hydronephrosis which can be followed to the left ureteral pelvic junction. There is a mild to moderate amount of left perinephric fluid which extends inferiorly into the infrarenal space. There are relatively symmetric nephrograms. No definite renal or ureteral stone. Stomach and bowel: Moderate fecal loading. No bowel wall thickening or dilatation. Appendix: No evidence of appendicitis. Intraperitoneal space: Small amount of free fluid in the pelvis. No free intraperitoneal air. Vasculature: There is a stable infrarenal abdominal aortic aneurysm which measures up to 3.5 cm and contains a moderate amount of thrombus. No signs of impending aortic rupture. Lymph nodes: No significant adenopathy. Urinary bladder: No definite bladder wall thickening. Reproductive: Status post hysterectomy. Bones/joints: Lower lumbar facet arthropathy. Significant degenerative disc disease at the thoracolumbar junction. Additional degenerative disc disease at L5-S1. Soft tissues: Extra-abdominal soft tissues are unremarkable. IMPRESSION: 1. Obstruction at the level of the left ureteral pelvic junction with associated probable pyelosinus reflux from caliceal rupture and secondary free fluid. 2. Stable 3.5 cm infrarenal abdominal aortic aneurysm. Dictated and Authenticated by: Hakan Chu MD. Ordering:GHULAM Crockett MD
[2022-01-27] MEDS: Ondansetron O.D.T. 4 MG TABEF, 3 TABS/BTL PO (20:21)
--- NOTE | 2022-01-27 22:45 | NUR.NOTE ---
Referral made to Urology per Shereen Thomason in 24-48 hrs for obstruction of left ureteral pelvic junction. Faxed the referral and put it in the transitional care liaison's box for follow up assistance.Nursing Note:
== END 2022-01-27 21:04 | disposition home or self-care (01) ==
PROVIDERS: Physician Assistant; Emergency Provider Registered Nurse Emergency; PCP Family Medicine
DX: N13.2 Hydronephrosis with renal and ureteral calculous obstruction (principal); J44.9 Chronic obstructive pulmonary disease, unspecified; I10 Essential (primary) hypertension
CPT/HCPCS: 80053; 83690; 93005; 96361; 96374; 96375; 96376; 99285; 74177; 81003; 85025; 93010; 99284; J2405; J3010; J3490

== ENCOUNTER → 2022-01-28 12:04 | Outpatient (BNVA) | payer MEDICARE, SELFPAY | PROVIDERS: PCP Family Medicine; Referring Provider Family Medicine; Visit Provider Nurse Practitioner Gerontology | DX: N13.30 Unspecified hydronephrosis (principal) | CPT/HCPCS: 81003; 99215 ==

== ENCOUNTER → 2022-02-03 15:01 | Outpatient (BNVA) | payer MEDICARE, SELFPAY | PROVIDERS: PCP Family Medicine; Referring Provider Family Medicine; Visit Provider Nurse Practitioner Gerontology | DX: N13.30 Unspecified hydronephrosis (principal) | CPT/HCPCS: 99214 ==

== ENCOUNTER 2022-02-18 20:20 | Emergency (ER) | payer MEDICARE, SELFPAY ==
[2022-02-18] VITALS (58 sets, daily range): BP systolic 109–174; BP diastolic 67–109; PULSE 105–125; RESP 14–31; TEMP 37; O2SAT 90–100
--- NOTE | 2022-02-18 20:15 | RT.EKG_ITS ---
APPROVED REPORT Exam: Resting ECG Reason for Exam: chest pain Patient Location: E HR:118 bpm ECG Measurements Heart Rate 118 AXIS UT 130 P 99 QRSd 80 QRS 88 QT 310 T -2 QTc 435 Conclusion Sinus tachycardia...rate> 99 Right atrial enlargement...P>0.25mV 2 lds or<-0.24mV aVR/aVL lvh
--- NOTE | 2022-02-18 20:30 | DI.CT_ITS ---
Exam(s) CT CHEST PE CTA EXAM: CT CHEST PE CTA CLINICAL HISTORY: chest pain, dyspnea, hypoxia. TECHNIQUE: Imaging Protocol: Axial CT angiography was performed with multi-slice acquisition and mu lti-planar and/or 3D reconstructions. CONTRAST MATERIAL: Intravenous: Omnipaque 350 Contrast volume:structured data in ml COMPARISON: CT CT ABDOMEN PELVIS W from 01/27/2022 FINDINGS: CT angiography of the chest was performed with intravenous infusion of 70 cc of Omnipaque 350. There are severe pulmonary emphysematous changes. There are multiple pulmonary opacities predominant ly in the lower lobes including consolidative process in the right lung base and scattered tree in bu d and interstitial opacities bilaterally. These findings were not present on prior abdominal CT of [facility] and are consistent with acute infectious process period. No pleural effusion. Tracheobro nchial tree appears intact. No evidence of pulmonary embolic disease. Thoracic aorta is of normal diameter, no thoracic aortic an eurysm or dissection, major branch vessels appear intact. No mediastinal or hilar adenopathy. Images obtained through the upper abdomen show unremarkable appearance of the visualized portions of the liver, spleen, pancreas, adrenals, and kidneys. IMPRESSION: Appearance of the lungs is highly suggestive of an acute infectious process.. No evidence of pulmona ry embolic disease. RADIATION DOSE DELIVERED: 182.79mGy.cm Total DLP 182.79mGy.cm Total DLP !Error CTDIvol DATA REPOSITORY: All CT scans at this facility are submitted to the National Radiology Data Registry (NRDR) Dose Index Registry (DIR) with the [employer] (A[employer]). RADIATION OPTIMIZATION: All CT scans at this facility use at least one of these dose optimization te chniques: automated exposure control; mA and/or kV adjustment per patient size (includes targeted exa ms where dose is matched to clinical indication); or iterative reconstruction.
--- NOTE | 2022-02-18 20:41 | W.ED.GENAD ---
Discharge Plan Disposition Patient Disposition: HOME Condition: Stable Discharge Details Clinical Impression: Chest pain, Pneumonia Primary Care Provider: Pavan Ybarra ED Provider: Omega Wylie Home Meds and New Rx's Prescriptions: New prednisone 20 mg tablet 60 mg PO DAILY 4 Days Qty: 12 0RF levofloxacin 750 mg tablet 750 mg PO DAILY Qty: 5 0RF Continued aspirin [Aspir-81] 81 mg tablet,delayed release (DR/EC) 81 mg PO DAILY Qty: 90 3RF Hold Instructions: Home Medication placed on hold at Doctor's office nitroglycerin [Nitrostat] 0.4 mg tablet, sublingual 0.4 mg Sublingual Q5 MIN PRN X3 Qty: 25 5RF Hold Instructions: Home Medication placed on hold at Doctor's office Rx Instructions: take one tab for chest pain, call 911, may repeat tab q5mins prn for two more doses lovastatin 40 mg tablet 80 mg PO DAILY Qty: 180 3RF Hold Instructions: Home Medication placed on hold at Doctor's office Rx Instructions: two tablets daily to reduce risk of recurrent cardiovascular events ipratropium-albuterol 0.5 mg-3 mg(2.5 mg base)/3 mL solution for nebulization 3 ml IH Q4H PRN (Reason: wheezing) Qty: 180 3RF atenolol 100 mg tablet 100 mg PO DAILY Qty: 90 3RF tramadol 50 mg tablet 50 mg PO TID PRN (Reason: pain) Qty: 30 3RF lisinopril 20 mg tablet 20 mg PO DAILY Qty: 90 3RF Hold Instructions: Home Medication placed on hold at Doctor's office albuterol sulfate [ProAir HFA] 90 mcg/actuation HFA aerosol inhaler 2 puff Inhalation Q4H PRN Qty: 2 6RF Rx Instructions: for reactive airways, wheezing Discharge Instructions Instructions: Pneumonia (ED) Additional Instructions: your cat scan showed you have a lung infection called a pneumonia follow up with your primary care provider as scheduled tomorrow if you feel more ill, have worsening trouble breathing or severe worsening pain return to the emergency department Medical Decision Making 76 yo female with hx of htn, hld, gerd, copd and continued smoker, who comes in with cc of chest pain since 530pm and also has had a cough for a day. She states she has had a productive cough for a day and tonight while sitting watching tv developed substernal nonradiating chest pain. She denies diaphoresis or n/v. She called ems who gave her 324mg asa and one dose of sublingual nitro and her pain resolved but on arrival is tachycardic to the 120's and room air saturations were 90%. She has an intermittent wet sounding cough. She denies any fevers or chills. She has diminished breath sounds at the bases, no wheezing, no leg swelling or jvd. Given her pain, hypoxia and tachycardia concern for PE, will obtain cta to evaluate for this and also send troponin to evaluate for nstemi. No tearing back pain to suggest dissection. For her cough will send covid test and the cta will evaluate for infiltrates. Given her copd history and cough will treat with a duoneb and solumedrol. labs show mildly low mag and k, no leukocytosis and negative troponin and was taken 3 hours after symptoms started. CTA shows no pe but does have multifocal pneumonia at the lung bases. She feels better after one neb, o2 saturation on room air now 94%. I did recommend admission for iv antibiotics but she declines and wants to go home. she has decision making capacity and her goal is to stay at home whenever possible as she does not like being in the hospital. Given her vitals have improved and has no leukocytosis or fever do not feel she needs to sign out AMA. She has f/u with her pcp tomorrow and she understands return precautions given Differential Diagnosis Differential Diagnosis: pneumonia, pe, acs Medical Records Medical records reviewed: Yes I reviewed the patient's medical records. Imaging Data Radiologic Study: Attestation: I personally reviewed and interpreted this imaging study as follows: Imaging: CT Scan Radiologist's impression: IMPRESSION: 1. No pulmonary embolism identified. 2. Findings of new multifocal bronchopneumonia within the lung bases as well as increased bronchitis and multifocal infectious small airways disease, as described above. 3. Moderate centrilobular emphysema. Lab Data Lab results reviewed: Yes I reviewed the patient's lab results. ECG Data Attestation: I personally reviewed and interpreted this ECG (s) as follows: Prior ECG tracings: available for review Interpretation: sinus tachycardia, rate of 118, pr 130, LVH no stemi HPI General Mode of arrival: EMS. Date/Time Provider Initiated Documentation: 02/18/22 20:30. Limitations to Documentation: no limitations. Information obtained by: patient. History of Present Illness 76 year old F presents to the emergency department with the chief complaint of chest pain, described as moderate, Patient started experiencing this hour(s) (3) and it has been now resolved. No relieving factors improve symptom(s), No exacerbating factors reported . Patient notes cough and shortness of breath. Patient did receive the following treatments prior to arrival, none Related Data Home Medications Medication Instructions Recorded Confirmed aspirin 81 mg tablet,delayed 81 mg PO DAILY #90 tab-caps 03/14/18 01/27/22 release (Aspir-) nitroglycerin 0.4 mg sublingual 0.4 mg sublingual Q5 MIN PRN X3 03/14/18 01/27/22 tablet (Nitrostat) #25 tabs ipratropium 0.5 mg-albuterol 3 mg 3 ml inhalation Q4H PRN wheezing 12/16/18 01/27/22 (2.5 mg base)/3 mL nebulization #180 mL soln lovastatin 40 mg tablet 80 mg PO DAILY #180 tab-caps 03/04/20 01/27/22 atenolol 100 mg tablet 100 mg PO DAILY #90 tabs 05/27/21 01/27/22 tramadol 50 mg tablet 50 mg PO TID PRN pain #30 tabs 11/11/21 01/27/22 albuterol sulfate 90 mcg/actuation 2 puff inhalation Q4H PRN 01/21/22 01/27/22 aerosol inhaler (ProAir HFA) wheezing, shortness of breath #2 units lisinopril 20 mg tablet 20 mg PO DAILY #90 tabs 01/21/22 01/27/22 levofloxacin 750 mg tablet 750 mg PO DAILY #5 tabs 02/18/22 prednisone 20 mg tablet 60 mg PO DAILY 4 days #12 tabs 02/18/22 Previous Rx's Medication Instructions Recorded aspirin 81 mg tablet,delayed 81 mg PO DAILY #90 tab-caps 03/14/18 release (Aspir-) nitroglycerin 0.4 mg sublingual 0.4 mg sublingual Q5 MIN PRN X3 03/14/18 tablet (Nitrostat) #25 tabs ipratropium 0.5 mg-albuterol 3 mg 3 ml inhalation Q4H PRN wheezing 12/16/18 (2.5 mg base)/3 mL nebulization #180 mL soln lovastatin 40 mg tablet 80 mg PO DAILY #180 tab-caps 03/04/20 atenolol 100 mg tablet 100 mg PO DAILY #90 tabs 05/27/21 tramadol 50 mg tablet 50 mg PO TID PRN pain #30 tabs 11/11/21 albuterol sulfate 90 mcg/actuation 2 puff inhalation Q4H PRN 01/21/22 aerosol inhaler (ProAir HFA) wheezing, shortness of breath #2 units lisinopril 20 mg tablet 20 mg PO DAILY #90 tabs 01/21/22 levofloxacin 750 mg tablet 750 mg PO DAILY #5 tabs 02/18/22 prednisone 20 mg tablet 60 mg PO DAILY 4 days #12 tabs 02/18/22 Allergies Allergy/AdvReac Type Severity Reaction Status Date / Time sumatriptan [From Imitrex] Allergy Severe caused Verified 01/28/22 12:12 Heart Attack chicken derived Allergy Unknown unknown Verified 01/28/22 12:12 Sulfa (Sulfonamide Allergy Unknown unknown Verified 01/28/22 12:12 Antibiotics) amlodipine AdvReac Intermediate orthostatic Verified 01/28/22 12:12 hypotension promethazine HCl AdvReac Unknown GI upset Verified 01/28/22 12:12 [From Phenergan] General Stated Complaint: Chest Pain DONTE: 3 Review of Systems All systems reviewed & are unremarkable except as noted in HPI and below Constitutional Constitutional: Denies chills, Denies fever(s) and Denies weakness Gastrointestinal Gastrointestinal: Denies abdominal pain, Denies nausea and Denies vomiting Musculoskeletal Musculoskeletal: Denies joint swelling Neurologic Neurologic: Denies weakness PFSH All Active Problems (Updated 02/18/22 @ 21:56 by Omega Wylie MD) Chest pain (Acute) Pneumonia (Acute) Obstruction of left ureteropelvic junction (UPJ) (Acute) Hydronephrosis, left (Acute) Degenerative tear of acetabular labrum of right hip (Acute) MRI 10/07 AAA (abdominal aortic aneurysm) (Chronic) Incidental 4 cm finding in October 2019 Iron deficiency (Acute) Chronic low back pain (Acute 04/19/70) initial industrial accident in [place] ~1970; sacral/lumbar Chronic alcoholism in remission (Acute 10/24/12) no alcohol since 1981 Atherosclerosis of rosebud coronary artery of rosebud heart without angina pectoris (Acute 04/19/97) [place] 1997; stent Apr 1999 RCA 90%, [facility] [place] 07/2008: neg ischemia, nl wall motion; EF 74% History of Surgical Procedure (Chronic) a. Left rotator cuff surgery. b. Bilateral mastectomy. c. Abdominal hysterectomy. d. Carpal tunnel release surgery. CAD (coronary artery disease) (Chronic) Fibromyalgia (Chronic) Hypertension (Chronic) Hyperlipidemia (Chronic) GERD (gastroesophageal reflux disease) (Chronic) Restless legs syndrome (Chronic) Tobacco dependence (Acute 06/18/11) Idiopathic peripheral neuropathy (Acute 06/18/11) Non-rheumatic mitral regurgitation (Acute) mild on ECHO [facility] [place]; Repeat 03/2016: mild MR, TR, mod incr PA pressure Osteoporosis, unspecified (Acute 06/18/11) Other chronic pain (Acute 06/18/11) OPIATES OFF AND ON SINCE 1970; AT LEAST from 2005 to Mar 2014; TRAMADOL DAYS PRN; extra strength tylenol Migraine headache without aura (Acute) Migraine headache with aura (Acute) Chronic headache (Acute) Medication overuse headache (Acute) 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) Screening for colon cancer (Acute) Angina pectoris (Acute 12/04/13) Migraine, unspecified, not intractable, without status migrainosus (Acute 06/18/11) last neuro [place] 01/2009 Pain, joint, multiple sites (Acute 06/18/11) paraspinal thoracic pain Extrapyramidal and movement disorder, unspecified (Acute 06/18/11) REstless Leg Syndrome Dry skin (Acute 03/06/16) Dermatitis (Acute 06/18/11) Chronic daily headache (Acute 07/19/15) Adjustment disorder, unspecified (Acute 04/27/16) Adenomatous polyp of colon (Acute 06/18/03) Saige Giordano, tubular adenoma rectum 2003; rpt 2008 neg, rpt 11/2013 neg for polyps, ? when repeat, neg FH Dyspnea (Acute) COPD (chronic obstructive pulmonary disease) (Chronic) Diverticulitis (Chronic) Pain, low back (Chronic) Surgical History H/O heart artery stent H/O resection of rib S/P bilateral breast implants S/p bilateral carpal tunnel release S/P bilateral mastectomy for cystic disease S/P craniotomy S/P hysterectomy S/P rotator cuff repair bilateral Family History Daughter Alcohol abuse Chronic headache Father Heart disease Mother Alcohol abuse Social History Smoking/Tobacco Use Status: Current every day Tobacco Type: cigarettes Tobacco: How many years used: 68 Quit status: not considering quitting Smoking risk assessment performed?: Yes Alcohol Intake: never Drug use: Never Substance use type: does not use Household members: children Housing: house Number of Children: 2 Communication Needs: Corrective Lenses Pets and animals: Yes Pets and animals: cat(s) Current gender identity: female What is your relationship status?: Panel score (0-1 are the most socially isolated patients): 0 What type of physical activity do you participate in: none Seatbelt use: always 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 Working smoke detector in home: Yes Fire extinguisher in home: Yes Carbon monox detector in home: Yes Do you feel safe at home: Yes Do you feel safe in your relationship?: Yes Exam Const General: no acute distress Orientation: alert HENMT Head: normal to inspection Ears: external ears normal General nose exam: external nose normal Mouth: moist mucous membranes Eyes General: appearance normal, both eyes and all related structures Neck Neck: normal visual inspection Resp Effort & Inspection: cough and no tracheal deviation Cardio Rate: regular rate Skin General skin exam: no rashes or lesions noted Neuro General: patient alert and patient oriented x3 Extrem General: normal to inspection Psych Mental Status: mental status grossly normal Course Vital Signs Vital signs: Vital Signs Temperature 37 C 02/18/22 20:21 Pulse 121 H 02/18/22 20:21 Respiratory Rate 20 02/18/22 20:21 Blood Pressure 174/109 H 02/18/22 20:21 Pulse Oximetry 90 L 02/18/22 20:21 Temperature 37 C 02/18/22 20:21 Temperature Source Oral 02/18/22 20:21 Pulse 121 H 02/18/22 20:21 Respiratory Rate 22 02/18/22 20:31 Respiratory Effort 02/18/22 20:31 Respiratory Depth Normal 02/18/22 20:31 Respiratory Pattern Normal 02/18/22 20:31 Blood Pressure 174/109 H 02/18/22 20:21 Blood Pressure Position Supine 02/18/22 20:21 Pulse Oximetry 90 L 02/18/22 20:21 Oxygen Delivery Method Room Air 02/18/22 20:21 Oxygen Flow Rate 0 02/18/22 20:21 Pain Level 0 02/18/22 20:31
[2022-02-18 20:58] LABS: Source Nasal/Nares
[2022-02-18 21:01] LABS: Abs Immature Grans 0.07 10^3/uL (0.0-0.06); Absolute Basophil Count 0.09 10^3/uL (0.0-0.2); Absolute Eosinophil Count 0.02 10^3/uL (0.0-0.7); Absolute Lymphocyte Count 0.52 10^3/uL (1.2-3.4); Absolute Monocyte Count 0.62 10^3/uL (0.1-0.8); Basophils % 0.9; Eosinophils % 0.2; HCT 37.5 % (36.0-46.0); Immature Grans % 0.7; MCH 29.5 pg (27.0-33.0); MCHC 34.7 % (32.0-36.0); MCV 85 fL (80-95); Neutrophils % 87.2; Platelet Count 227 10^3/uL (130-400); RBC 4.41 10^6/uL (3.93-5.22); RDW 13.2 % (11.7-14.6); RDW-SD 41.1 fL; WBC 10.32 10^3/uL (4.4-10.8)
[2022-02-18] MEDS: Omnipaque 350 MG/ML 100 ML BTL IJ (21:04)
[2022-02-18 21:17] LABS: ALT 9 U/L (14-59); AST 20 U/L (15-37); Albumin 2.5 g/dL (3.4-5.0); Alkaline Phosphatase 63 U/L (46-116); Anion Gap 8.9 mmol/L (3-11); BUN 26 mg/dL (7-18); Bilirubin, Total 1.5 mg/dL (0.2-1.0); CO2 25.1 mmol/L (21.0-32.0); CREATININE 1.2 mg/dL (0.55-1.02); Calcium 8.9 mg/dL (8.5-10.1); Chloride 97 mmol/L (98-107); Estimated GFR 46.91 (mL/min/1.73m2); Glucose 143 mg/dL (74-106); Magnesium 1.6 mg/dL (1.8-2.4); Potassium 3.2 mmol/L (3.5-5.1); Sodium 131 mmol/L (136-145); Total Protein 6.7 g/dL (6.4-8.2); Troponin I < 50 ng/L (<or=60)
[2022-02-18] MEDS: methylPREDNISolone SUCC 125 MG VIAL IVP (21:27)
[2022-02-18] MEDS: Albuterol/Ipratropium 3 ML UPD VIAL UPD (21:27)
[2022-02-18 21:39] LABS: COVID-19 PCR Negative (Negative)
[2022-02-18 21:46] LABS: D-Dimer 3070 ng/mlFEU (<500)
--- NOTE | 2022-02-18 21:48 | DI.VRAD_ITS ---
PROCEDURE INFORMATION: Exam: CTA Chest With Contrast Exam date and time: 02/18/2022 8:57 PM Age: 76 years old Clinical indication: Other: Chest pain, dyspnea, hypoxia TECHNIQUE: Imaging protocol: Computed tomographic angiography of the chest with contrast. 3D rendering (Not supervised by radiologist): MIP and/or 3D reconstructed images were created by the technologist. Radiation optimization: All CT scans at this facility use at least one of these dose optimization techniques: automated exposure control; mA and/or kV adjustment per patient size (includes targeted exams where dose is matched to clinical indication); or iterative reconstruction. Contrast material: OMNIPAQUE 350; Contrast volume: 70 ml; Contrast route: INTRAVENOUS (IV); COMPARISON: CT CHEST LUNG CANCER SCREEN 11/22/2018 1:50 PM FINDINGS: Pulmonary arteries: No filling defects within the pulmonary arteries are identified to suggest pulmonary embolism. Aorta: There is moderate multifocal atherosclerotic disease of the thoracic aorta. No thoracic aortic aneurysm or dissection is identified. Lungs: Again noted is mild dependent mucus within the lower trachea as well as the mainstem bronchi, mildly increased from prior study. Again noted is mild central peribronchial thickening. There are multifocal regions of tree-in-bud opacities, mostly in the mid and lower lung regions, increased from prior study, consistent with multifocal infectious small airways disease. There are new nodular and confluent basilar pulmonary airspace opacities, right greater than left, most marked within the base of the right lower lobe, where there is a new region of consolidation measuring 2.6 x 7 cm in axial dimensions, suggesting bronchopneumonia. Again noted are regions of pleuroparenchymal scarring at both lung apices. There is moderate centrilobular emphysema involving predominantly the upper lobes. Pleural spaces: There are no pleural effusions present. Heart: Heart size is normal. There is no pericardial effusion. Lymph nodes: There is no evidence of lymphadenopathy. Bones/joints: There is mild widening of both acromioclavicular joint suggesting history of mild AC joint separation. There is multilevel moderate spondylosis of the lower thoracic and upper lumbar spine with multiple mild grade 1 subluxations in this region, likely chronic and degenerative. Soft tissues: There are bilateral breast implants in place with peripheral calcifications, unchanged from prior study. IMPRESSION: 1. No pulmonary embolism identified. 2. Findings of new multifocal bronchopneumonia within the lung bases as well as increased bronchitis and multifocal infectious small airways disease, as described above. 3. Moderate centrilobular emphysema. Dictated and Authenticated by: Jaime Mares MD. Ordering:MARLINE Duff MD
[2022-02-18] MEDS: levoFLOXacin 500 MG, levoFLOXacin 250 MG 750 MG PO (21:57)
== END 2022-02-18 22:17 | disposition home or self-care (01) ==
LOC: ER 22:31
PROVIDERS: Emergency Provider Emergency Medicine; PCP Family Medicine
DX: J18.9 Pneumonia, unspecified organism (principal); J44.0 Chronic obstructive pulmonary disease with (acute) lower respiratory infection; R07.2 Precordial pain; I10 Essential (primary) hypertension; F17.210 Nicotine dependence, cigarettes, uncomplicated; Z79.52 Long term (current) use of systemic steroids; Z20.822 Contact with and (suspected) exposure to COVID-19
CPT/HCPCS: 36415; 71275; 80053; 87635; 93005; 94640; 96374; 99284; 99285; 83735; 84484; 85025; 85379; 93010; J2930; J3490; J7620

== ENCOUNTER 2022-03-26 02:47 | Inpatient (IN) | payer MEDICARE, SELFPAY ==
[2022-03-26] VITALS (23 sets, daily range): BP systolic 139–187; BP diastolic 68–83; PULSE 53–64; RESP 15–20; TEMP 35.7–36.6; O2SAT 79–98
--- NOTE | 2022-03-26 02:45 | DI.CT_ITS ---
Exam(s) CT ABDOMEN PELVIS W EXAM: CT ABDOMEN PELVIS W CLINICAL HISTORY: left flank pain, AAA, r/o stone TECHNIQUE: Imaging Protocol: Axial computed tomography images with coronal and sagittal reformatted images were created and reviewed CONTRAST MATERIAL: Intravenous: Omnipaque 350 Contrast volume:100 mL Oral: No COMPARISON: CT CT ABDOMEN PELVIS W from 04/27/[address] ABDOMEN PELVIS W from 01/27/[address] CHEST PE CTA from 02/18/2022 FINDINGS: ABDOMEN: Lung Bases: There is a very small right pleural effusion. Patchy opacities are seen in the lung base s, right greater than left. They have shown improvement compared to the CT scan from 02/18/2022. Liver: Normal density. There is a stable tiny hypodensity in the right lobe the liver. It is too sma ll for further characterization but likely reflects a small cyst. Portal, Superior Mesenteric, and Splenic Veins: Unremarkable. Gallbladder and Biliary Tract: There are no gallstones present. The common duct measures 1 cm. This is unchanged compared to the prior examinations. Pancreas: Normal density, no abnormal calcifications or inflammatory process. Spleen: Normal. Adrenals: No masses seen. Kidneys: There is normal and symmetric enhancement of the kidneys. There is persistent marked dilata tion of the left renal pelvis. The left ureter is normal in caliber. This was not present on the ex amination from 2019 but has been stable since the most recent CT scan from 01/27/2022. There has bee n an increase in the perinephric fluid since the prior examination. No radiodense stones or obstruct nena uropathy. No masses seen. Abdominal Aorta: There is again seen at 3.5 x 3.7 cm infrarenal abdominal aortic aneurysm. There is extensive atherosclerosis present. No definite evidence of leakage or rupture. Bowel: No evidence of obstruction. There is diverticulosis of the colon but no evidence of acute div erticulitis. There is a normal appendix present. There is a moderate amount of stool throughout the colon. Peritoneal Cavity: There is a trace amount of fluid in the pelvis. No free air. Lymph Nodes: Within normal limits. Bones: Within normal limits for the patient's age. There is a mild left convex curvature of the lumb ar spine. Soft Tissues: Unremarkable. PELVIS: Bladder: Symmetric distention, no gross wall thickening. Reproductive Organs: Status post hysterectomy. Lymph Nodes: Within normal limits. Bones: Within normal limits for the patient's age. IMPRESSION: 1. Persistent left hydronephrosis without definite obstructive etiology. No nephrolithiasis. Modera te left perinephric fluid which is slightly increased since the prior examination from 01/27/2022. 2. Bilateral basilar infiltrates and small right pleural effusion. Overall this has shown some impro vement since 02/18/2022. 3. Infrarenal abdominal aortic aneurysm without definite evidence of leakage or rupture. 4. Findings suggestive of constipation. RADIATION DOSE DELIVERED: 446.2mGy.cm Total DLP DATA REPOSITORY: All CT scans at this facility are submitted to the National Radiology Data Registry (NRDR) Dose Index Registry (DIR) with the [employer] (ACR). RADIATION OPTIMIZATION: All CT scans at this facility use at least one of these dose optimization te chniques: automated exposure control; mA and/or kV adjustment per patient size (includes targeted exa ms where dose is matched to clinical indication); or iterative reconstruction.
--- NOTE | 2022-03-26 02:53 | W.ED.GENAD ---
Discharge Plan Disposition Patient Disposition: Admit to [facility] Condition: Stable Discharge Details Chief Complaint: FlankPain Clinical Impression: Acute left flank pain Primary Care Provider: Pavan Ybarra ED Provider: Mike Ingram Home Meds and New Rx's Prescriptions: No Action aspirin [Aspir-81] 81 mg tablet,delayed release (DR/EC) 81 mg PO DAILY Qty: 90 3RF Hold Instructions: Home Medication placed on hold at Doctor's office nitroglycerin [Nitrostat] 0.4 mg tablet, sublingual 0.4 mg Sublingual Q5 MIN PRN X3 Qty: 25 5RF Hold Instructions: Home Medication placed on hold at Doctor's office Rx Instructions: take one tab for chest pain, call 911, may repeat tab q5mins prn for two more doses ipratropium-albuterol 0.5 mg-3 mg(2.5 mg base)/3 mL solution for nebulization 3 ml IH Q4H PRN (Reason: wheezing) Qty: 180 3RF atenolol 100 mg tablet 100 mg PO DAILY Qty: 90 3RF tramadol 50 mg tablet 50 mg PO TID PRN (Reason: pain) Qty: 30 3RF lovastatin 40 mg tablet 80 mg PO DAILY Qty: 180 3RF Hold Instructions: Home Medication placed on hold at Doctor's office Rx Instructions: two tablets daily to reduce risk of recurrent cardiovascular events lisinopril 20 mg tablet 20 mg PO DAILY Qty: 90 3RF Hold Instructions: Home Medication placed on hold at Doctor's office albuterol sulfate [ProAir HFA] 90 mcg/actuation HFA aerosol inhaler 2 puff Inhalation Q4H PRN Qty: 2 6RF Rx Instructions: for reactive airways, wheezing Medical Decision Making 77-year-old female with a past medical history of COPD, tobacco abuse, AAA, GERD, fibromyalgia, hypertension, kidney stones, presents today for left flank pain. Patient states that 3 hours ago she was woken out of sleep with left flank pain. She states that it is achy and stabbing in nature. She states that it feels like her previous kidney stones. EMS was called and the patient was brought to the ER no other complaints at this time. No vomiting or diarrhea. No chest pain. M demonstrates an elderly female, mild left-sided CVA tenderness. No pulsatile abdominal mass. Differential is highest for kidney stone, will get a CAT scan to evaluate this and the AAA that the patient does have at baseline. We will treat her pain, monitor closely and reassess. 4:56 AM Laboratory work-up has returned stable, urinalysis negative for any significant abnormalities, mild white count of 13, creatinine improved at 1.1, GFR 51%. Patient's pain has needed 8 mg admitted for management. It does appear to notably improve, but then comes on about an hour or so afterwards. CT scan shows evidence of notable left hydronephrosis and enlarged left ureter, without obstructive etiology being clearly identified. There is also perinephric fluid with possible urine extravasation secondary to forniceal rupture. CT scan does show evidence of bibasilar atelectasis and scarring and possible right lower lobe pneumonia however clinically the patient denies any cough or fever. Will not start antibiotics. AAA is stable. I did contact urology Dr. Kwong and discussed the case with him. He agrees with admission with potential plan for uroscopy. Discussed the case with Dr. Pulliam of the hospitalist service, he agrees with the plan. I will place admission orders on his behalf. I have extensively reviewed the treatment plan with the patient. I have addressed all patient concerns at this time. I have also discussed the plan with the admitting physician and they agree with the current assessment and plan and have agreed to assume responsibility for the patient. All parties demonstrate verbal understanding and agreement with our assessment and plan at this time. The documentation in this chart was dictated using [employer] dictation software. Please excuse any dictation errors. FINDINGS: Lungs: Bibasilar atelectasis/scarring and possible small right lower lobe pneumonia. Liver: Simple cyst within the medial segment left hepatic lobe. Gallbladder and bile ducts: Normal. Pancreas: Normal. Spleen: Normal. Adrenal glands: Normal. No mass. Kidneys and ureters: Left hydronephrosis, without obstructive etiology identified. Moderate left perinephric fluid, possibly urine extravasation secondary to forniceal rupture. No urolithiasis. Stomach and bowel: Colonic diverticulosis. Moderate amount of stool throughout the colon, compatible with constipation. No obstruction. Appendix: No evidence of appendicitis. Intraperitoneal space: Unremarkable. No free air. No significant fluid collection. asculature: Atherosclerotic disease of the abdominal aorta and iliac arteries, with fusiform infrarenal abdominal aortic aneurysm measuring 3.9 cm in AP diameter by 3.5 cm in transverse dimension (series 4, image 230). No definite evidence of leakage or rupture. Phleboliths within the pelvis. Phleboliths within the pelvis. Lymph nodes: Unremarkable. No enlarged lymph nodes. Urinary bladder: Unremarkable as visualized. Reproductive: Uterus is surgically absent. Bones/joints: No acute abnormality. Soft tissues: Normal. IMPRESSION: 1. Left hydronephrosis, without obstructive etiology identified. No urolithiasis. Moderate left perinephric fluid, possibly urine extravasation secondary to forniceal rupture. 2. Bibasilar atelectasis/scarring and possible small right lower lobe pneumonia. 3. Atherosclerotic disease of the abdominal aorta and iliac arteries, with fusiform infrarenal abdominal aortic aneurysm measuring 3.9 cm in AP diameter by 3.5 cm in transverse dimension (series 4, image 230). No definite evidence of leakage or rupture. 4. Moderate amount of stool throughout the colon, compatible with constipation. No obstruction. Thank you for allowing us to participate in the care of your patient. Dictated and Authenticated by: Stephen Bills MD 03/26/2022 4:30 AM Eastern Time ([place] & [place]) Sign Out No HPI General Date/Time Provider Initiated Documentation: 03/26/22 02:49. HPI Narrative: 77-year-old female with a past medical history of COPD, tobacco abuse, AAA, GERD, fibromyalgia, hypertension, kidney stones, presents today for left flank pain. Patient states that 3 hours ago she was woken out of sleep with left flank pain. She states that it is achy and stabbing in nature. She states that it feels like her previous kidney stones. EMS was called and the patient was brought to the ER no other complaints at this time. No vomiting or diarrhea. No chest pain. Related Data Home Medications Medication Instructions Recorded Confirmed aspirin 81 mg tablet,delayed 81 mg PO DAILY #90 tab-caps 03/14/18 03/26/22 release (Aspir-) nitroglycerin 0.4 mg sublingual 0.4 mg sublingual Q5 MIN PRN X3 03/14/18 03/26/22 tablet (Nitrostat) #25 tabs ipratropium 0.5 mg-albuterol 3 mg 3 ml inhalation Q4H PRN wheezing 12/16/18 03/26/22 (2.5 mg base)/3 mL nebulization #180 mL soln atenolol 100 mg tablet 100 mg PO DAILY #90 tabs 05/27/21 03/26/22 albuterol sulfate 90 mcg/actuation 2 puff inhalation Q4H PRN 01/21/22 03/26/22 aerosol inhaler (ProAir HFA) wheezing, shortness of breath #2 units lisinopril 20 mg tablet 20 mg PO DAILY #90 tabs 01/21/22 03/26/22 lovastatin 40 mg tablet 80 mg PO DAILY #180 tab-caps 03/23/22 03/26/22 tramadol 50 mg tablet 50 mg PO TID PRN pain #30 tabs 03/23/22 03/26/22 Previous Rx's Medication Instructions Recorded aspirin 81 mg tablet,delayed 81 mg PO DAILY #90 tab-caps 03/14/18 release (Aspir-) nitroglycerin 0.4 mg sublingual 0.4 mg sublingual Q5 MIN PRN X3 03/14/18 tablet (Nitrostat) #25 tabs ipratropium 0.5 mg-albuterol 3 mg 3 ml inhalation Q4H PRN wheezing 12/16/18 (2.5 mg base)/3 mL nebulization #180 mL soln atenolol 100 mg tablet 100 mg PO DAILY #90 tabs 05/27/21 albuterol sulfate 90 mcg/actuation 2 puff inhalation Q4H PRN 01/21/22 aerosol inhaler (ProAir HFA) wheezing, shortness of breath #2 units lisinopril 20 mg tablet 20 mg PO DAILY #90 tabs 01/21/22 lovastatin 40 mg tablet 80 mg PO DAILY #180 tab-caps 03/23/22 tramadol 50 mg tablet 50 mg PO TID PRN pain #30 tabs 03/23/22 Allergies Allergy/AdvReac Type Severity Reaction Status Date / Time sumatriptan [From Imitrex] Allergy Severe caused Verified 03/26/22 02:51 Heart Attack chicken derived Allergy Unknown unknown Verified 03/26/22 02:51 Sulfa (Sulfonamide Allergy Unknown unknown Verified 03/26/22 02:51 Antibiotics) amlodipine AdvReac Intermediate orthostatic Verified 03/26/22 02:51 hypotension promethazine HCl AdvReac Unknown GI upset Verified 03/26/22 02:51 [From Phenergan] General Stated Complaint: FlankPain DONTE: 3 Review of Systems All systems reviewed & are unremarkable except as noted in HPI and below PFSH All Active Problems (Updated 03/26/22 @ 04:58 by Mike Ingram, ) Acute left flank pain (Acute) Degenerative tear of acetabular labrum of right hip (Acute) MRI 10/07 AAA (abdominal aortic aneurysm) (Chronic) Incidental 4 cm finding in October 2019 Iron deficiency (Acute) Chronic low back pain (Acute 04/19/70) initial industrial accident in [place] ~1970; sacral/lumbar Chronic alcoholism in remission (Acute 10/24/12) no alcohol since 1981 Atherosclerosis of [place] coronary artery of [place] heart without angina pectoris (Acute 04/19/97) [place] 1997; stent Apr 1999 RCA 90%, [facility]; MPI 07/2008: neg ischemia, nl wall motion; EF 74% History of Surgical Procedure (Chronic) a. Left rotator cuff surgery. b. Bilateral mastectomy. c. Abdominal hysterectomy. d. Carpal tunnel release surgery. CAD (coronary artery disease) (Chronic) Fibromyalgia (Chronic) Hypertension (Chronic) Hyperlipidemia (Chronic) GERD (gastroesophageal reflux disease) (Chronic) Restless legs syndrome (Chronic) Tobacco dependence (Acute 06/18/11) Idiopathic peripheral neuropathy (Acute 06/18/11) Non-rheumatic mitral regurgitation (Acute) mild on ECHO [facility] 2009; Repeat 03/2016: mild MR, TR, mod incr PA pressure Osteoporosis, unspecified (Acute 06/18/11) Other chronic pain (Acute 06/18/11) OPIATES OFF AND ON SINCE 1970; AT LEAST from 2005 to Mar 2014; TRAMADOL DAYS PRN; extra strength tylenol Migraine headache without aura (Acute) Migraine headache with aura (Acute) Chronic headache (Acute) Medication overuse headache (Acute) 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) Screening for colon cancer (Acute) Angina pectoris (Acute 12/04/13) Migraine, unspecified, not intractable, without status migrainosus (Acute 06/18/11) last neuro [place] 01/2009 Pain, joint, multiple sites (Acute 06/18/11) paraspinal thoracic pain Extrapyramidal and movement disorder, unspecified (Acute 06/18/11) REstless Leg Syndrome Dry skin (Acute 03/06/16) Dermatitis (Acute 06/18/11) Chronic daily headache (Acute 07/19/15) Adjustment disorder, unspecified (Acute 04/27/16) Adenomatous polyp of colon (Acute 06/18/03) Saige Giordano, tubular adenoma rectum 2003; rpt 2008 neg, rpt 11/2013 neg for polyps, ? when repeat, neg FH Dyspnea (Acute) COPD (chronic obstructive pulmonary disease) (Chronic) Diverticulitis (Chronic) Pain, low back (Chronic) Surgical History H/O heart artery stent H/O resection of rib S/P bilateral breast implants S/p bilateral carpal tunnel release S/P bilateral mastectomy for cystic disease S/P craniotomy S/P hysterectomy S/P rotator cuff repair bilateral Family History Daughter Alcohol abuse Chronic headache Father Heart disease Mother Alcohol abuse Social History Smoking/Tobacco Use Status: Current every day Tobacco Type: cigarettes Tobacco: How many years used: 68 Quit status: not considering quitting Smoking risk assessment performed?: Yes Alcohol Intake: never Drug use: Never Substance use type: does not use Household members: children Housing: house Number of Children: 2 Communication Needs: Corrective Lenses Pets and animals: Yes Pets and animals: cat(s) Current gender identity: female What is your relationship status?: Panel score (0-1 are the most socially isolated patients): 0 What type of physical activity do you participate in: none Seatbelt use: always Drive intox 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 3.ENT: Atraumatic external nose and ears. Moist MM. Neck: Symmetric, trachea midline, No thyromegaly. 4.CVS: +S1/S2, No murmurs or gallops. Peripheral pulses 2+ and equal in all extremities. Brisk capillary refill in all extremities. 5.RESP: Unlabored respiratory effort. Clear to auscultation bilaterally. No wheezes rales or rhonchi 6.GI: Soft, Nontender/Nondistended, No hepatosplenomegaly. No guarding or rebound. Mild left-sided CVA tenderness. No pulsatile abdominal mass. 7.MSK: Normocephalic/Atraumatic, Extremities w/o deformity or ttp No cyanosis or clubbing, Normal movement of all extremities 8.Skin: Warm, Dry. No rashes or lesions. 9.Neuro: copy chief II-XII grossly intact. Sensation grossly intact, no focal neurologic deficits. 10.Psych: (AAO) x3. Appropriate mood and affect Course Vital Signs Vital signs: Vital Signs Temperature 36.6 C 03/26/22 02:42 Pulse 64 03/26/22 02:42 Respiratory Rate 16 03/26/22 02:42 Pulse Oximetry 95 03/26/22 02:42 Temperature 36.6 C 03/26/22 02:42 Temperature Source Temporal Artery Scan 03/26/22 02:42 Pulse 64 03/26/22 02:42 Respiratory Rate 16 03/26/22 02:42 Respiratory Effort 03/26/22 02:42 Blood Pressure Position Sitting 03/26/22 02:42 Pulse Oximetry 95 03/26/22 02:42 Oxygen Delivery Method Room Air 03/26/22 02:42 Oxygen Flow Rate 0 03/26/22 02:42 Pain Level 10 03/26/22 02:49
[2022-03-26 02:56] LABS: Bilirubin Negative (Negative); Blood Negative (Negative); Clarity Sl Cloudy (Clear); Glucose Negative (Negative); Ketones Negative (Negative); Leukocyte Esterase Negative (Negative); Nitrite Negative (Negative); Urobilinogen 0.2 EU/dL (Up TO 0.2)
[2022-03-26] MEDS: MORPHine 4 MG/ML SYR IVP ×2 (02:56→04:21)
[2022-03-26] MEDS: Normal Saline 1,000 ML 1000 ML IV (02:56)
[2022-03-26 03:19] LABS: ALT 8 U/L (14-59); AST 14 U/L (15-37); Albumin 3.3 g/dL (3.4-5.0); Alkaline Phosphatase 70 U/L (46-116); Anion Gap 6.8 mmol/L (3-11); BUN 10 mg/dL (7-18); Bilirubin, Total 0.7 mg/dL (0.2-1.0); CO2 30.2 mmol/L (21.0-32.0); CREATININE 1.1 mg/dL (0.55-1.02); Calcium 8.9 mg/dL (8.5-10.1); Chloride 102 mmol/L (98-107); Estimated GFR 51.75 (mL/min/1.73m2); Glucose 156 mg/dL (74-106); Potassium 3.9 mmol/L (3.5-5.1); Sodium 139 mmol/L (136-145); Total Protein 6.8 g/dL (6.4-8.2)
[2022-03-26 03:23] LABS: Abs Immature Grans 0.06 10^3/uL (0.0-0.06); Absolute Basophil Count 0.08 10^3/uL (0.0-0.2); Absolute Eosinophil Count 0.09 10^3/uL (0.0-0.7); Absolute Lymphocyte Count 1.62 10^3/uL (1.2-3.4); Absolute Monocyte Count 0.74 10^3/uL (0.1-0.8); Basophils % 0.6; Eosinophils % 0.7; HCT 44.2 % (36.0-46.0); HGB 14.5 g/dL (11.2-15.7); Immature Grans % 0.4; Lymphocytes % 12.1; MCH 29.6 pg (27.0-33.0); MCHC 32.8 % (32.0-36.0); MCV 90 fL (80-95); MPV 9.6 fL (8.0-11.0); Monocytes % 5.5; Neutrophils % 80.7; Platelet Count 272 10^3/uL (130-400); RDW 13.4 % (11.7-14.6); RDW-SD 43.8 fL; WBC 13.38 10^3/uL (4.4-10.8)
[2022-03-26] MEDS: Omnipaque 350 MG/ML 100 ML BTL IJ (03:25)
[2022-03-26] MEDS: Normal Saline - Diluent 50 ML VIAL IV (03:26)
--- NOTE | 2022-03-26 04:30 | DI.VRAD_ITS ---
PROCEDURE INFORMATION: Exam: CT Abdomen And Pelvis With Contrast Exam date and time: 03/26/2022 3:15 AM Age: 77 years old Clinical indication: Abdominal pain; Flank; Left; Prior surgery; Surgery date: 6+ months; Surgery type: Hysterectomy; Patient HX: H/o aaa; Additional info: Left flank pain, aaa, R/O stone TECHNIQUE: Imaging protocol: Computed tomography of the abdomen and pelvis with contrast. Radiation optimization: All CT scans at this facility use at least one of these dose optimization techniques: automated exposure control; mA and/or kV adjustment per patient size (includes targeted exams where dose is matched to clinical indication); or iterative reconstruction. Contrast material: OMNI 350; Contrast volume: 100 ml; Contrast route: INTRAVENOUS (IV); COMPARISON: CT ABDOMEN PELVIS W 01/27/2022 5:11 PM FINDINGS: Lungs: Bibasilar atelectasis/scarring and possible small right lower lobe pneumonia. Liver: Simple cyst within the medial segment left hepatic lobe. Gallbladder and bile ducts: Normal. Pancreas: Normal. Spleen: Normal. Adrenal glands: Normal. No mass. Kidneys and ureters: Left hydronephrosis, without obstructive etiology identified. Moderate left perinephric fluid, possibly urine extravasation secondary to forniceal rupture. No urolithiasis. Stomach and bowel: Colonic diverticulosis. Moderate amount of stool throughout the colon, compatible with constipation. No obstruction. Appendix: No evidence of appendicitis. Intraperitoneal space: Unremarkable. No free air. No significant fluid collection. Vasculature: Atherosclerotic disease of the abdominal aorta and iliac arteries, with fusiform infrarenal abdominal aortic aneurysm measuring 3.9 cm in AP diameter by 3.5 cm in transverse dimension (series 4, image 230). No definite evidence of leakage or rupture. Phleboliths within the pelvis. Phleboliths within the pelvis. Lymph nodes: Unremarkable. No enlarged lymph nodes. Urinary bladder: Unremarkable as visualized. Reproductive: Uterus is surgically absent. Bones/joints: No acute abnormality. Soft tissues: Normal. IMPRESSION: 1. Left hydronephrosis, without obstructive etiology identified. No urolithiasis. Moderate left perinephric fluid, possibly urine extravasation secondary to forniceal rupture. 2. Bibasilar atelectasis/scarring and possible small right lower lobe pneumonia. 3. Atherosclerotic disease of the abdominal aorta and iliac arteries, with fusiform infrarenal abdominal aortic aneurysm measuring 3.9 cm in AP diameter by 3.5 cm in transverse dimension (series 4, image 230). No definite evidence of leakage or rupture. 4. Moderate amount of stool throughout the colon, compatible with constipation. No obstruction. Dictated and Authenticated by: Stephen Bills MD. Ordering:FELI Mckeon MD
[2022-03-26 05:01] LABS: Source Nasal/Nares
[2022-03-26] MEDS: MORPHine 2 MG/ML SYR IVP (05:04)
[2022-03-26] MEDS: Normal Saline 1,000 ML 150 ML IV (05:05)
[2022-03-26 05:34] LABS: COVID-19 PCR Negative (Negative)
[2022-03-26] MEDS: Ketorolac 30 MG/ML VIAL IVP (06:29)
--- NOTE | 2022-03-26 08:28 | UCONE_ITS ---
Date of service: 03/26/22 Time of Service: 09:38 Assessment and Plan Assessment and plan (1) Hydronephrosis, left: Status: Chronic Assessment and plan: We had previously seen this patient after the hydronephrosis was first discovered. We had talked to her about placing a ureteral stent to relieve any obstruction or even checking a nuclear renogram with Lasix washout to check for renal function/obstruction. At that time, the patient elected no treatment whatsoever and no additional work-up. I do not see a stone that would account for her hydronephrosis. The fact that the hydronephrosis was not present 2 years ago makes a congenital UPJ obstruction unlikely. I have seen patients with inflammatory changes around an abdominal aortic aneurysm. These patients will develop an extrinsic ureteral compression and hydronephrosis. At times, they may respond to steroids but will often require ureterolysis. I offered to place a ureteral stent to relieve the patient's obstruction. A stent would require a trip to the operating room with anesthetic on board. The stent would only be a temporary measure and might need to be changed every 3 to 6 months. Any additional evaluation would likely need to be at a tertiary care center that has both vascular surgery and urology services. Typically, the indications for emergent surgical intervention would be worsening renal function, signs or symptoms of sepsis, or persistent pain. The patient again tells me that she is not inclined toward any type of surgical procedure. She has no signs of sepsis, so I believe the urine that has leaked from her collecting system is sterile. She believes that she can control her pain symptoms with oral medications. I will respect her wishes. I will go ahead and start her on a regular diet. She is actually interested in going home today and they think that is reasonable enough as long as she checks in with our office by phone tomorrow just in case she changes her mind about having a ureteral stent placed. If she does follow-up signs or symptoms of sepsis, we may need a combination of a ureteral stent and a percutaneous drain to allow for drainage of the perirenal fluid. No treatment for the perirenal fluid is recommended unless we believe it is infected. She has never seen palliative care and a palliative care consult might be worthwhile so that all of her expressed wishes can be further discussed and documented. History of Present Illness History of Present Illness Chief Complaint: Left hydronephrosis Narrative: This is a 77-year-old woman who was previously seen in our office after she was found to have left hydronephrosis. Based on her scan, it appeared that there was dilation of her renal pelvis with a fairly normal caliber distal ureter. Her renal function was normal and she had no signs of sepsis. We had talked to her about getting a nuclear renogram to assess renal function or even placing a ureteral stent to relieve any presumed obstruction. At that time, the patient expressed an interest in not have any invasive or x-ray treatments, so we respected her wishes. She presented to the emergency department last evening with left flank pain. She does have chronic back pain and uses tramadol. Her pain worsened last evening and she presented to the emergency department. She thought she might have a kidney stone. She was evaluated with a noncontrast CT scan and in addition to the previously identified hydronephrosis, she now had perirenal fluid suggesting a ruptured fornix. The patient required IV analgesics in the emergency department. She tells me now that she is fairly comfortable just with oral analgesics. She is not having any fevers or chills. Review of Systems Constitutional Comments: No fevers or chills No vision change or dysphasia No diabetes or thyroid COPD with shortness of breath. No hemoptysis No chest pain or palpitations GERD. No hepatitis, ulcers, jaundice Migraine LEÓN, Peripheral neuropathy. No seizures or strokes No bleeding disorders or anemia Chronic low back pain and arthralgia. No gout PFSH All Active Problems (Updated 03/26/22 @ 21:09 by Tiburcio Beckett MD) Hydronephrosis, left (Chronic) Acute left flank pain (Acute) Degenerative tear of acetabular labrum of right hip (Acute) MRI 10/07 AAA (abdominal aortic aneurysm) (Chronic) Incidental 4 cm finding in October 2019 Iron deficiency (Acute) Chronic low back pain (Acute 04/19/70) initial industrial accident in [place] ~1970; sacral/lumbar Chronic alcoholism in remission (Acute 10/24/12) no alcohol since 1981 Atherosclerosis of [place] coronary artery of [place] heart without angina pectoris (Chronic 04/19/97) [place] 1997; stent Apr 1999 RCA 90%, [facility] [place] 07/2008: neg ischemia, nl wall motion; EF 74% History of Surgical Procedure (Chronic) a. Left rotator cuff surgery. b. Bilateral mastectomy. c. Abdominal hysterectomy. d. Carpal tunnel release surgery. CAD (coronary artery disease) (Chronic) Fibromyalgia (Chronic) Hypertension (Chronic) Hyperlipidemia (Chronic) GERD (gastroesophageal reflux disease) (Chronic) Restless legs syndrome (Chronic) Tobacco dependence (Acute 06/18/11) Idiopathic peripheral neuropathy (Acute 06/18/11) Non-rheumatic mitral regurgitation (Acute) mild on ECHO [facility] [place] 2009; Repeat 03/2016: mild MR, TR, mod incr PA pressure Osteoporosis, unspecified (Acute 06/18/11) Other chronic pain (Acute 06/18/11) OPIATES OFF AND ON SINCE 1970; AT LEAST from 2005 to Mar 2014; TRAMADOL DAYS PRN; extra strength tylenol Migraine headache without aura (Acute) Migraine headache with aura (Acute) Chronic headache (Acute) Medication overuse headache (Acute) 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) Screening for colon cancer (Acute) Angina pectoris (Acute 12/04/13) Migraine, unspecified, not intractable, without status migrainosus (Acute 06/18/11) last neuro [place] 01/2009 Pain, joint, multiple sites (Acute 06/18/11) paraspinal thoracic pain Extrapyramidal and movement disorder, unspecified (Acute 06/18/11) REstless Leg Syndrome Dry skin (Acute 03/06/16) Dermatitis (Acute 06/18/11) Chronic daily headache (Acute 07/19/15) Adjustment disorder, unspecified (Acute 04/27/16) Adenomatous polyp of colon (Acute 06/18/03) Saige Giordano, tubular adenoma rectum 2003; rpt 2008 neg, rpt 11/2013 neg for polyps, ? when repeat, neg FH Dyspnea (Acute) COPD (chronic obstructive pulmonary disease) (Chronic) Diverticulitis (Chronic) Pain, low back (Chronic) Surgical History H/O heart artery stent H/O resection of rib S/P bilateral breast implants S/p bilateral carpal tunnel release S/P bilateral mastectomy for cystic disease S/P craniotomy S/P hysterectomy S/P rotator cuff repair bilateral Family History Daughter Alcohol abuse Chronic headache Father Heart disease Mother Alcohol abuse Social History Smoking/Tobacco Use Status: Current every day Tobacco Type: cigarettes Tobacco: How many years used: 68 Quit status: not considering quitting Smoking risk assessment performed?: Yes Alcohol Intake: never Drug use: Never Substance use type: does not use Household members: children Housing: house Number of Children: 2 Communication Needs: Corrective Lenses Pets and animals: Yes Pets and animals: cat(s) Current gender identity: female What is your relationship status?: Panel score (0-1 are the most socially isolated patients): 0 What type of physical activity do you participate in: none Seatbelt use: always 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 Back in 2019, there was no sign of hydronephrosis on the left. Her last 2 scans have shown left hydronephrosis with no dilated distal ureter. There is an abdominal aortic aneurysm in proximity to the left UPJ. Her most study shows perirenal fluid consistent with a ruptured fornix. The perirenal fluid was not present on her previous scan. Const Other: She appears comfortable Her vital signs are documented elsewhere She has no peritoneal signs She has expresses herself well and seems to have good insight. Her lab work is reviewed. Her urine does not appear infected. Her renal funct ion is normal. Her white blood count is slightly elevated. Results Last Vital Signs Temp 36.1 C L 03/26/22 07:43 Pulse 53 L 03/26/22 07:43 Resp 18 03/26/22 07:43 BP 139/68 03/26/22 07:43 Pulse Ox 92 03/26/22 07:43 Labs Result diagrams: 03/26/22 02:55 03/26/22 02:55 Labs: Laboratory Results - last 24 hr 03/26/22 03/26/22 03/26/22 02:47 02:55 02:55 WBC 13.38 H RBC 4.90 Hgb 14.5 Hct 44.2 MCV 90 MCH 29.6 MCHC 32.8 RDW 13.4 Plt Count 272 MPV 9.6 Immature Gran % 0.4 Neutrophils % 80.7 Lymphocytes % 12.1 Monocytes % 5.5 Eosinophils % 0.7 Basophils % 0.6 Nucleated RBC % 0.0 Absolute Neutrophils 10.80 H Absolute Lymphocytes 1.62 Absolute Monocytes 0.74 Absolute Eosinophils 0.09 Absolute Basophils 0.08 Sodium 139 Potassium 3.9 Chloride 102 Carbon Dioxide 30.2 Anion Gap 6.8 BUN 10 Creatinine 1.1 H Est GFR (CKD-EPI 2020) 51.75 Glucose 156 H Calcium 8.9 Total Bilirubin 0.7 AST 14 L ALT 8 L Alkaline Phosphatase 70 Total Protein 6.8 Albumin 3.3 L Urine Color Yellow Urine Clarity Sl Cloudy Urine pH 7.0 Ur Specific [place] 1.020 Urine Protein Negative Urine Ketones Negative Urine Blood Negative Urine Nitrite Negative Urine Bilirubin Negative Urine Urobilinogen 0.2 Ur Leukocyte Esterase Negative Urine Glucose Negative COVID-19 Source SARS-CoV-2 (PCR) 03/26/22 04:55 WBC RBC Hgb Hct MCV MCH MCHC RDW Plt Count MPV Immature Gran % Neutrophils % Lymphocytes % Monocytes % Eosinophils % Basophils % Nucleated RBC % Absolute Neutrophils Absolute Lymphocytes Absolute Monocytes Absolute Eosinophils Absolute Basophils Sodium Potassium Chloride Carbon Dioxide Anion Gap BUN Creatinine Est GFR (CKD-EPI 2020) Glucose Calcium Total Bilirubin AST ALT Alkaline Phosphatase Total Protein Albumin Urine Color Urine Clarity Urine pH Ur Specific [place] Urine Protein Urine Ketones Urine Blood Urine Nitrite Urine Bilirubin Urine Urobilinogen Ur Leukocyte Esterase Urine Glucose COVID-19 Source Nasal/Nares SARS-CoV-2 (PCR) Negative
--- NOTE | 2022-03-26 09:07 | W.PM.HP.N ---
Date of service: 03/26/22 Time of Service: 05:35 Assessment and Plan Assessment and plan (1) Hydronephrosis, left: Status: Acute Assessment and plan: Consult Urology for evaluation and any treatment/intervention plan. Given toradol x1. PRN IV morphine. (2) AAA (abdominal aortic aneurysm): Status: Chronic Assessment and plan: Known 3.5 x 3.7cm known infrarenal AAA seen. Stable. (3) Atherosclerosis of [place] coronary artery of [place] heart without angina pectoris: Status: Acute Assessment and plan: No CP. Cont ASA, BB and statin (4) Hypertension: Status: Chronic Assessment and plan: Cont Atenolol and lisinopril. Monitor. (5) COPD (chronic obstructive pulmonary disease) with emphysema: Status: Acute Assessment and plan: Cont prn Duoneb or albuterol neb prn. Currently no exacerbation. History of Present Illness History of Present Illness Chief Complaint: Left flank pain Narrative: This is a 77-year-old female with a past medical history of COPD, tobacco abuse, AAA, GERD, fibromyalgia, hypertension, kidney stones, who presented for left flank pain.? Patient states that 3 hours prior to presentation she was woken out of sleep with left flank pain.? She states that it is achy and stabbing in nature.? She states that it feels like her previous kidney stones.? EMS was called and the patient was brought to the ER no other complaints at this time.? No vomiting or diarrhea.? No chest pain. No dysuria/frequency. Workup in ED showed a negative UA. WBC count of 13, creatinine of 1.1. She was administered IV morphine for pain control with good results. CT showed left hydronephrosis and enlarged left ureter w/o obstructive etiology being clearly identified. + pernephric fluid with possible urine extravasation secondary to forniceal rupture. Also noted was bibasilar atelectasis and scarring and questionably a right lower lobe pneumonia. She denied any fever, cough/sputum, shortness of air. Antibiotic coverage initiated in the ED. Dr Kwong with Urology notified by ED physician and will consult. Review of Systems All systems reviewed & are unremarkable except as noted in HPI and below PFSH All Active Problems Hydronephrosis, left (Acute) Acute left flank pain (Acute) Degenerative tear of acetabular labrum of right hip (Acute) MRI 10/07 AAA (abdominal aortic aneurysm) (Chronic) Incidental 4 cm finding in October 2019 Iron deficiency (Acute) Chronic low back pain (Acute 04/19/70) initial industrial accident in [place] ~1970; sacral/lumbar Chronic alcoholism in remission (Acute 10/24/12) no alcohol since 1981 Atherosclerosis of [place] coronary artery of [place] heart without angina pectoris (Acute 04/19/97) [place] 1997; stent Apr 1999 RCA 90%, [facility] [place]; MPI 07/2008: neg ischemia, nl wall motion; EF 74% History of Surgical Procedure (Chronic) a. Left rotator cuff surgery. b. Bilateral mastectomy. c. Abdominal hysterectomy. d. Carpal tunnel release surgery. CAD (coronary artery disease) (Chronic) Fibromyalgia (Chronic) Hypertension (Chronic) Hyperlipidemia (Chronic) GERD (gastroesophageal reflux disease) (Chronic) Restless legs syndrome (Chronic) Tobacco dependence (Acute 06/18/11) Idiopathic peripheral neuropathy (Acute 06/18/11) Non-rheumatic mitral regurgitation (Acute) mild on ECHO [facility] [place] 2009; Repeat 03/2016: mild MR, TR, mod incr PA pressure Osteoporosis, unspecified (Acute 06/18/11) Other chronic pain (Acute 06/18/11) OPIATES OFF AND ON SINCE 1970; AT LEAST from 2005 to Mar 2014; TRAMADOL DAYS PRN; extra strength tylenol Migraine headache without aura (Acute) Migraine headache with aura (Acute) Chronic headache (Acute) Medication overuse headache (Acute) 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) Screening for colon cancer (Acute) Angina pectoris (Acute 12/04/13) Migraine, unspecified, not intractable, without status migrainosus (Acute 06/18/11) last neuro [place] 01/2009 Pain, joint, multiple sites (Acute 06/18/11) paraspinal thoracic pain Extrapyramidal and movement disorder, unspecified (Acute 06/18/11) REstless Leg Syndrome Dry skin (Acute 03/06/16) Dermatitis (Acute 06/18/11) Chronic daily headache (Acute 07/19/15) Adjustment disorder, unspecified (Acute 04/27/16) Adenomatous polyp of colon (Acute 06/18/03) [place] Giordano, tubular adenoma rectum 2003; rpt 2008 neg, rpt 11/2013 neg for polyps, ? when repeat, neg FH Dyspnea (Acute) COPD (chronic obstructive pulmonary disease) (Chronic) Diverticulitis (Chronic) Pain, low back (Chronic) Surgical History H/O heart artery stent H/O resection of rib S/P bilateral breast implants S/p bilateral carpal tunnel release S/P bilateral mastectomy for cystic disease S/P craniotomy S/P hysterectomy S/P rotator cuff repair bilateral Family History Daughter Alcohol abuse Chronic headache Father Heart disease Mother Alcohol abuse Social History Smoking/Tobacco Use Status: Current every day Tobacco Type: cigarettes Tobacco: How many years used: 68 Quit status: not considering quitting Smoking risk assessment performed?: Yes Alcohol Intake: never Drug use: Never Substance use type: does not use Household members: children Housing: house Number of Children: 2 Communication Needs: Corrective Lenses Pets and animals: Yes Pets and animals: cat(s) Current gender identity: female What is your relationship status?: Panel score (0-1 are the most socially isolated patients): 0 What type of physical activity do you participate in: none Seatbelt use: always 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 Working smoke detector in home: Yes Fire extinguisher in home: Yes Carbon monox detector in home: Yes Do you feel safe at home: Yes Do you feel safe in your relationship?: Yes Meds Allergies and Home Medications Allergies Allergy/AdvReac Type Severity Reaction Status Date / Time sumatriptan [From Imitrex] Allergy Severe caused Verified 03/26/22 02:51 Heart Attack chicken derived Allergy Unknown unknown Verified 03/26/22 02:51 Sulfa (Sulfonamide Allergy Unknown unknown Verified 03/26/22 02:51 Antibiotics) amlodipine AdvReac Intermediate orthostatic Verified 03/26/22 02:51 hypotension promethazine HCl AdvReac Unknown GI upset Verified 03/26/22 02:51 [From Phenergan] Home Medications Medication Instructions Recorded Confirmed Type aspirin 81 mg tablet,delayed 81 mg PO DAILY #90 tab-caps 03/14/18 03/26/22 Rx release (Aspir-) nitroglycerin 0.4 mg sublingual 0.4 mg sublingual Q5 MIN PRN X3 03/14/18 03/26/22 Rx tablet (Nitrostat) #25 tabs ipratropium 0.5 mg-albuterol 3 mg 3 ml inhalation Q4H PRN wheezing 12/16/18 03/26/22 Rx (2.5 mg base)/3 mL nebulization #180 mL soln atenolol 100 mg tablet 100 mg PO DAILY #90 tabs 05/27/21 03/26/22 Rx albuterol sulfate 90 mcg/actuation 2 puff inhalation Q4H PRN 01/21/22 03/26/22 Rx aerosol inhaler (ProAir HFA) wheezing, shortness of breath #2 units lisinopril 20 mg tablet 20 mg PO DAILY #90 tabs 01/21/22 03/26/22 Rx lovastatin 40 mg tablet 80 mg PO DAILY #180 tab-caps 03/23/22 03/26/22 Rx tramadol 50 mg tablet 50 mg PO TID PRN pain #30 tabs 03/23/22 03/26/22 Rx Exam Narrative Exam Narrative: Pleasant female sitting on edge of pain. Appears nontoxic. Conversant. Const General: cooperative and no acute distress Nutritional Appearance: thin Orientation: alert and oriented x3 Eyes General: appearance normal, both eyes and all related structures Sclera: sclerae normal Resp Effort & Inspection: normal respiratory effort Auscultation: clear to auscultation bilaterally Cardio Rate: regular rate Rhythm: regular rhythm Heart Sounds: S1 normal and S2 normal GI Inspection: non-distended Palpation: soft Back/Spine/Pelvis Back: CVA tenderness (left) and No erythema Skin General skin exam: no rashes or lesions noted Extrem General: no pedal edema and no calf tenderness Psych Appearance: grossly normal Mental Status: mental status grossly normal Speech and Movement: speech and movement normal Affect: normal affect Results Labs Result diagrams: 03/26/22 02:55 03/26/22 02:55 Labs: Laboratory Results - last 24 hr 03/26/22 03/26/22 03/26/22 02:47 02:55 02:55 WBC 13.38 H RBC 4.90 Hgb 14.5 Hct 44.2 MCV 90 MCH 29.6 MCHC 32.8 RDW 13.4 Plt Count 272 MPV 9.6 Immature Gran % 0.4 Neutrophils % 80.7 Lymphocytes % 12.1 Monocytes % 5.5 Eosinophils % 0.7 Basophils % 0.6 Nucleated RBC % 0.0 Absolute Neutrophils 10.80 H Absolute Lymphocytes 1.62 Absolute Monocytes 0.74 Absolute Eosinophils 0.09 Absolute Basophils 0.08 Sodium 139 Potassium 3.9 Chloride 102 Carbon Dioxide 30.2 Anion Gap 6.8 BUN 10 Creatinine 1.1 H Est GFR (CKD-EPI 2020) 51.75 Glucose 156 H Calcium 8.9 Total Bilirubin 0.7 AST 14 L ALT 8 L Alkaline Phosphatase 70 Total Protein 6.8 Albumin 3.3 L Urine Color Yellow Urine Clarity Sl Cloudy Urine pH 7.0 Ur Specific [place] 1.020 Urine Protein Negative Urine Ketones Negative Urine Blood Negative Urine Nitrite Negative Urine Bilirubin Negative Urine Urobilinogen 0.2 Ur Leukocyte Esterase Negative Urine Glucose Negative COVID-19 Source SARS-CoV-2 (PCR) 03/26/22 04:55 WBC RBC Hgb Hct MCV MCH MCHC RDW Plt Count MPV Immature Gran % Neutrophils % Lymphocytes % Monocytes % Eosinophils % Basophils % Nucleated RBC % Absolute Neutrophils Absolute Lymphocytes Absolute Monocytes Absolute Eosinophils Absolute Basophils Sodium Potassium Chloride Carbon Dioxide Anion Gap BUN Creatinine Est GFR (CKD-EPI 2020) Glucose Calcium Total Bilirubin AST ALT Alkaline Phosphatase Total Protein Albumin Urine Color Urine Clarity Urine pH Ur Specific [place] Urine Protein Urine Ketones Urine Blood Urine Nitrite Urine Bilirubin Urine Urobilinogen Ur Leukocyte Esterase Urine Glucose COVID-19 Source Nasal/Nares SARS-CoV-2 (PCR) Negative Last Vital Signs Temp 36.1 C L 03/26/22 07:43 Pulse 53 L 03/26/22 07:43 Resp 18 03/26/22 07:43 BP 139/68 03/26/22 07:43 Pulse Ox 92 03/26/22 07:43 PAWSS Have you Been Recently Intoxicated or Drunk Within the Last 30 days?: No Have you Ever Experienced Previous Episodes of Alcohol Withdrawal?: No Have you ever Experienced Withdrawal Seizures?: No Have you ever Experienced Delirium Tremens(DT)s?: No Have you ever undergone Alcohol Rehabilitation Treatment (i.e, inpt ot outpatient treatment programs)?: No Have you ever Experienced Blackouts?: No Have you ever Combined Alcohol with other [place] within the last 90 days?: No Have you ever Combined Alcohol with any other Substance of Abuse during the last 90 days?: No Positive Blood Alcohol level on Presentation? [PCS.BAL]: No Evidence of Increased Autonomic Activity (i.e. HR>120, tremor, sweating, agitation, nausea)?: No Result: 0
--- NOTE | 2022-03-26 10:32 | PDOC.CMIN ---
- If Service Date Differs Date of service: 03/26/22 Time of Service: 10:32 Care Management Initial Assess REASON FOR HOSPITALIZATION:: left hydronephrosos PAST MEDICAL HISTORY/PAST SURGICAL HISTORY:: All Active Problems . Hydronephrosis, left (Acute). Acute left flank pain (Acute). Degenerative tear of acetabular labrum of right hip (Acute). MRI 10/07. AAA (abdominal aortic aneurysm) (Chronic). Incidental 4 cm finding in October 2019. Iron deficiency (Acute). Chronic low back pain (Acute 04/19/70). initial industrial accident in [place] ~1970; sacral/lumbar. Chronic alcoholism in remission (Acute 10/24/12). no alcohol since 1981. Atherosclerosis of [place] coronary artery of [place] heart without angina pectoris (Acute 04/19/97). First CT 1997; stent Apr 1999 RCA 90%, [facility] [place]; MPI 07/2008: neg ischemia, nl wall motion; EF 74%. History of Surgical Procedure (Chronic). a. Left rotator cuff surgery. b. Bilateral mastectomy. c. Abdominal hysterectomy. d. Carpal tunnel release surgery. CAD (coronary artery disease) (Chronic). Fibromyalgia (Chronic). Hypertension (Chronic). Hyperlipidemia (Chronic). GERD (gastroesophageal reflux disease) (Chronic). Restless legs syndrome (Chronic). Tobacco dependence (Acute 06/18/11). Idiopathic peripheral neuropathy (Acute 06/18/11). Non-rheumatic mitral regurgitation (Acute). mild on ECHO [facility] [place] 2009; Repeat 03/2016: mild MR, TR, mod incr PA pressure. Osteoporosis, unspecified (Acute 06/18/11). Other chronic pain (Acute 06/18/11). OPIATES OFF AND ON SINCE 1970; AT LEAST from 2005 to Mar 2014; TRAMADOL DAYS PRN; extra strength tylenol. Migraine headache without aura (Acute). Migraine headache with aura (Acute). Chronic headache (Acute). Medication overuse headache (Acute). 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 Screening for colon cancer (Acute). Angina pectoris (Acute 12/04/13). Migraine, unspecified, not intractable, without status migrainosus (Acute 06/18/11). last neuro [place] 01/2009. Pain, joint, multiple sites (Acute 06/18/11). paraspinal thoracic pain. Extrapyramidal and movement disorder, unspecified (Acute 06/18/11). REstless Leg Syndrome. Dry skin (Acute 03/06/16). Dermatitis (Acute 06/18/11). Chronic daily headache (Acute 07/19/15). Adjustment disorder, unspecified (Acute 04/27/16). Adenomatous polyp of colon (Acute 06/18/03). Saige Giordano, tubular adenoma rectum 2003; rpt 2008 neg, rpt 11/2013 neg for polyps, ? when repeat, neg FH. Dyspnea (Acute). COPD (chronic obstructive pulmonary disease) (Chronic). Diverticulitis (Chronic). Pain, low back (Chronic). Surgical History . H/O heart artery stent. H/O resection of rib. S/P bilateral breast implants. S/p bilateral carpal tunnel release. S/P bilateral mastectomy. for cystic disease. S/P craniotomy. S/P hysterectomy. S/P rotator cuff repair. bilateral PREVIOUS FUNCTIONAL STATUS/SOCIAL/FAMILY SUPPORTS:: Arelis lives in [facility]. She has a daughter Elba who lives with her and a son who lives in [place]. She had another son who last year. 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 She is independent at baseline and continues to drive. CURRENT FUNCTIONAL STATUS:: Arelis was sitting up on the side of her bed when CM met with her. She was pleasant and engaged easily with CM. arelis stated that she is feeling a lot better and hopes to be able to go home soon. ADVANCE DIRECTIVES:: COLST on file Has patient been provided with info about the portal/API?: Yes Did the patient sign up for the portal?: Yes CODE STATUS:: Full Code INSURANCE COVERAGE / FINANCIAL ISSUES:: [facility] Medicare replacement CURRENT HOME/COMMUNITY SERVICES/EQUIPMENT:: none PRIMARY CARE PHYSICIAN:: Pavan Ybarra POTENTIAL DISCHARGE NEEDS:: follow up with commubnity providers and plan of care PATIENT/FAMILY EDUCATION NEEDS:: Review of discharge instructions, limitations, activity, follow up plan, discuss Ask Me Three TRANSPORTATION:: via private vehicle with family PLAN:: Arelis will likely be discharged home with no new services. She will folllow up with her PCP and plan of care and transport with family. CM will continue to support Arelis and assess for ongoing discharge concerns.
[2022-03-26] MEDS: Aspirin 81 MG CHEW PO (11:12)
[2022-03-26] MEDS: Lisinopril 20 MG TAB PO (11:13)
[2022-03-26] MEDS: Atenolol 50 MG TAB 100 MG PO (11:16)
--- NOTE | 2022-03-26 14:51 | CHAPLAIN ---
Arelis was sitting at the edge of the bed when I visited. She was pleasant and easily engaged in a conversation. Arelis said she was admitted last night and was able to sleep well after getting to her room. She said her daughter lives with her and she has a younger son who lives in [place]. Her oldest son here at [facility] a couple of years ago. Arelis is originally from [place] but has lived in this area for 30 years. She as been and cared for two husbands before they each . Arelis explained that she grew up in a large family on a farm in [place] and there wasn't much food, so she still only eats every few days, she said. I will continue to visit.
--- NOTE | 2022-03-26 14:53 | DSE_ITS ---
Date of service: 03/26/22 Time of Service: 14:54 DS: Diagnosis Discharge Diagnosis (1) Hydronephrosis, left: Status: Chronic Asessment and Plan: patient declined to have any urologic intervention at this time. (2) Hypertension: Status: Chronic Asessment and Plan: no change in her home meds. (3) AAA (abdominal aortic aneurysm): Status: Chronic Asessment and Plan: follow up w/ PCP to monitor (4) Community acquired pneumonia: Status: Suspected Asessment and Plan: bibasilar consolidation in a smoker who has had flank pain. This probably is d/t atelectasis but as patient had leukocytosis she was put on 5 days of Levaquin. Repeat CXR in 2 weeks Discharge Plan Disposition Patient Disposition: Home Condition: Improving Discharge Details Reason For Visit: left flank pain Admit Date/Time: 03/26/22 04:53 Admit Provider: Fernando Pulliam Attending Provider: Fernando Pulliam Primary Care Provider: Pavan Ybarra [facility] Course Hospital Course: 77-year-old female with a past medical history of COPD, tobacco abuse, AAA, GERD, fibromyalgia, hypertension, kidney stones, who presented? for left flank pain. Patient has known left hydronephrosis, dx per CT done in the ER on 01/27/22 and has been followed in the urology clinic since that time. At her last urology visit on 02/03/22 she had indicated that she did not want cystoscopy and stenting. The location of her obstruction is likely the left UVP based on the CT findings. No radiologic stone was seen on her CT. She presented to the ED last night d/t left flank pain that awoke her. She was admitted last night d/t the repeat CT scan demonstrating persistent left hydronephrosis w/ surrounding moderate perinephric fluid presumed to be extravasation of urine. She was also noted to have basilar infiltrates (?atelectasis vs pneumonic consolidations) and she was found to have to have a leukocytosis of 13,000. UA was negative. She was not started on antibiotics but was treated for her pain w/ ketorolac and morphine. Dr. Kwong, urologist, was consulted this morning, see his consult note for details. After lengthy discussion by Dr. Kwong w/ the francis ent, the patient again re-affirmed her decision not to pursue surgical intervention for her hydronephrosis. Her pain control was then switched to oral Tramadol and she was discharged home to follow up w/ her PCP. She was put on 5 day course of Levaaquin for possible pneumonic consolidations. Follow up chest xray in 2weeks to ensure resolution is recommended. She is encouraged to call Dr. Kwong if she changes her mind about cystoscopy and stenting. Home Meds and New Rx's Prescriptions: New levofloxacin 750 mg tablet 750 mg PO DAILY 5 Days Qty: 5 0RF tramadol 50 mg tablet 50 mg PO Q6H PRNQty: 20 0RF Rx Instructions: 50 mg po q6h prn flank pain Continued aspirin [Aspir-81] 81 mg tablet,delayed release (DR/EC) 81 mg PO DAILY Qty: 90 3RF Hold Instructions: Home Medication placed on hold at Doctor's office nitroglycerin [Nitrostat] 0.4 mg tablet, sublingual 0.4 mg Sublingual Q5 MIN PRN X3 Qty: 25 5RF Hold Instructions: Home Medication placed on hold at Doctor's office Rx Instructions: take one tab for chest pain, call 911, may repeat tab q5mins prn for two more doses ipratropium-albuterol 0.5 mg-3 mg(2.5 mg base)/3 mL solution for nebulization 3 ml IH Q4H PRN (Reason: wheezing) Qty: 180 3RF atenolol 100 mg tablet 100 mg PO DAILY Qty: 90 3RF tramadol 50 mg tablet 50 mg PO TID PRN (Reason: pain) Qty: 30 3RF lovastatin 40 mg tablet 80 mg PO DAILY Qty: 180 3RF Hold Instructions: Home Medication placed on hold at Doctor's office Rx Instructions: two tablets daily to reduce risk of recurrent cardiovascular events lisinopril 20 mg tablet 20 mg PO DAILY Qty: 90 3RF Hold Instructions: Home Medication placed on hold at Doctor's office albuterol sulfate [ProAir HFA] 90 mcg/actuation HFA aerosol inhaler 2 puff Inhalation Q4H PRN Qty: 2 6RF Rx Instructions: for reactive airways, wheezing Discharge Instructions Instructions: Hydronephrosis (DC) Additional Instructions: You have a dilatated left kidney and Dr. Kwong, urologist, was consulted on your case. YOu and he discussed your treatment options. At this time you have decided against having a surgical procedure to look at the ureter and kidney and to have a stent to the ureter draining the left kidney. Your CT scan also demonstrated some consolidation in the lung bases right more so than the left. You have a mildly elevated white cell count and therefore we are treating the lung consolidations as pneumonia. YOu need to quit smoking and finish your antibiotics. You have been prescribed a 5 day course of levofloxacin. Your primary care provider should follow up w/ repeat chest xray in two weeks. Stand Alone Forms: Nursing Discharge Form Referrals: Ralph Kwong MD [ [facility] STAFF PHYSICIAN] - (call for follow up if you decide to proceed with cystoscopy) Pavan Ybarra DO [Primary Care Provider] - 04/02/22 10:45 am Activity:: Activity as Tolerated Equipment/Supplies:: No Equipment Needed Diet:: Normal Diet Discharge Orders Discharge Orders: Discharge Order (Routine); Ordered 03/26/22 Ordered By: Tiburcio Beckett Other Ambulatory Orders: XR chest 2V PA & lateral (Routine) Timeframe: 2 Weeks Facility: [facility] - Location: DIAGNOSTIC IMAGING Ordered By: Tiburcio Beckett Discharge Data Discharge Date/Time-TO BE ENTERED AT DEPARTURE: 03/26/22 15:40 DS: Summary Time Spent with Patient providing and/or coordinating discharge services: Less than 30 minutes Status at Discharge Functional status at discharge: independent ambulation Overall status at discharge: patient is progressing back to baseline Mental Status: mental status grossly normal Speech and Movement: speech and movement normal Mood: congruent mood Affect: normal affect Exam Psych Mental Status: mental status grossly normal Speech and Movement: speech and movement normal Mood: congruent mood Affect: normal affect DS: Data Vitals/I&O Vitals and I&O: Vital Signs Temperature 36.5 C 03/26/22 11:18 Temperature Source Tympanic 03/26/22 11:18 Pulse 53 L 03/26/22 11:18 Pulse Rhythm Regular 03/26/22 11:19 Respiratory Rate 20 03/26/22 11:18 Respiratory Effort 03/26/22 11:19 Respiratory Depth Normal 03/26/22 11:19 Respiratory Pattern Normal 03/26/22 11:19 Blood Pressure 146/69 H 03/26/22 11:18 Blood Pressure Mean 97 03/26/22 05:16 Blood Pressure Position Sitting 03/26/22 02:42 Pulse Oximetry 97 03/26/22 11:18 Oxygen Delivery Method Room Air 03/26/22 11:18 Oxygen Flow Rate 0 03/26/22 11:18 Pain Level 0 03/26/22 13:15 Comment 03/26/22 11:18 Intake & Output 03/25/22 03/26/22 03/26/22 23:59 11:59 23:59 Intake Total 1009 Output Total 200 / 200 Balance 1009 800 / 1810 Weight 43.1 kg Intake: IV 1009 Output: Urine 200 / 200 Other: Urine Color Yellow Yellow Urine Appearance Clear Clear Urine Odor Normal Comment pT stated that she voided in toilet. Voiding Methods Toilet Toilet Data Completed and Pending Labs on day of discharge: Labs from last 24 hours 03/26/22 03/26/22 03/26/22 04:55 02:55 02:55 WBC 13.38 H RBC 4.90 Hgb 14.5 Hct 44.2 MCV 90 MCH 29.6 MCHC 32.8 RDW 13.4 Plt Count 272 MPV 9.6 Immature Gran % 0.4 Neutrophils % 80.7 Lymphocytes % 12.1 Monocytes % 5.5 Eosinophils % 0.7 Basophils % 0.6 Nucleated RBC % 0.0 Absolute Neutrophils 10.80 H Absolute Lymphocytes 1.62 Absolute Monocytes 0.74 Absolute Eosinophils 0.09 Absolute Basophils 0.08 Sodium 139 Potassium 3.9 Chloride 102 Carbon Dioxide 30.2 Anion Gap 6.8 BUN 10 Creatinine 1.1 H Est GFR (CKD-EPI 2020) 51.75 Glucose 156 H Calcium 8.9 Total Bilirubin 0.7 AST 14 L ALT 8 L Alkaline Phosphatase 70 Total Protein 6.8 Albumin 3.3 L Urine Color Urine Clarity Urine pH Ur Specific [place] Urine Protein Urine Ketones Urine Blood Urine Nitrite Urine Bilirubin Urine Urobilinogen Ur Leukocyte Esterase Urine Glucose COVID-19 Source Nasal/Nares SARS-CoV-2 (PCR) Negative 03/26/22 02:47 WBC RBC Hgb Hct MCV MCH MCHC RDW Plt Count MPV Immature Gran % Neutrophils % Lymphocytes % Monocytes % Eosinophils % Basophils % Nucleated RBC % Absolute Neutrophils Absolute Lymphocytes Absolute Monocytes Absolute Eosinophils Absolute Basophils Sodium Potassium Chloride Carbon Dioxide Anion Gap BUN Creatinine Est GFR (CKD-EPI 2020) Glucose Calcium Total Bilirubin AST ALT Alkaline Phosphatase Total Protein Albumin Urine Color Yellow Urine Clarity Sl Cloudy Urine pH 7.0 Ur Specific [place] 1.020 Urine Protein Negative Urine Ketones Negative Urine Blood Negative Urine Nitrite Negative Urine Bilirubin Negative Urine Urobilinogen 0.2 Ur Leukocyte Esterase Negative Urine Glucose Negative COVID-19 Source SARS-CoV-2 (PCR) PFSH All Active Problems (Updated 03/26/22 @ 21:09 by Tiburcio Beckett MD) Hydronephrosis, left (Chronic) Acute left flank pain (Acute) Degenerative tear of acetabular labrum of right hip (Acute) MRI 10/07 AAA (abdominal aortic aneurysm) (Chronic) Incidental 4 cm finding in October 2019 Iron deficiency (Acute) Chronic low back pain (Acute 04/19/70) initial industrial accident in [place] ~1970; sacral/lumbar Chronic alcoholism in remission (Acute 10/24/12) no alcohol since 1981 Atherosclerosis of [place] coronary artery of [place] heart without angina pectoris (Chronic 04/19/97) First [place] 1997; stent Apr 1999 RCA 90%, [facility] [place] [place] MPI 07/2008: neg ischemia, nl wall motion; EF 74% History of Surgical Procedure (Chronic) a. Left rotator cuff surgery. b. Bilateral mastectomy. c. Abdominal hysterectomy. d. Carpal tunnel release surgery. CAD (coronary artery disease) (Chronic) Fibromyalgia (Chronic) Hypertension (Chronic) Hyperlipidemia (Chronic) GERD (gastroesophageal reflux disease) (Chronic) Restless legs syndrome (Chronic) Tobacco dependence (Acute 06/18/11) Idiopathic peripheral neuropathy (Acute 06/18/11) Non-rheumatic mitral regurgitation (Acute) mild on ECHO [facility] [place]; Repeat 03/2016: mild MR, TR, mod incr PA pressure Osteoporosis, unspecified (Acute 06/18/11) Other chronic pain (Acute 06/18/11) OPIATES OFF AND ON SINCE 1970; AT LEAST from 2005 to Mar 2014; TRAMADOL DAYS PRN; extra strength tylenol Migraine headache without aura (Acute) Migraine headache with aura (Acute) Chronic headache (Acute) Medication overuse headache (Acute) 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) Screening for colon cancer (Acute) Angina pectoris (Acute 12/04/13) Migraine, unspecified, not intractable, without status migrainosus (Acute 06/18/11) last neuro [place] 01/2009 Pain, joint, multiple sites (Acute 06/18/11) paraspinal thoracic pain Extrapyramidal and movement disorder, unspecified (Acute 06/18/11) REstless Leg Syndrome Dry skin (Acute 03/06/16) Dermatitis (Acute 06/18/11) Chronic daily headache (Acute 07/19/15) Adjustment disorder, unspecified (Acute 04/27/16) Adenomatous polyp of colon (Acute 06/18/03) Saige Giordano, tubular adenoma rectum 2003; rpt 2008 neg, rpt 11/2013 neg for polyps, ? when repeat, neg FH Dyspnea (Acute) COPD (chronic obstructive pulmonary disease) (Chronic) Diverticulitis (Chronic) Pain, low back (Chronic) Surgical History H/O heart artery stent H/O resection of rib S/P bilateral breast implants S/p bilateral carpal tunnel release S/P bilateral mastectomy for cystic disease S/P craniotomy S/P hysterectomy S/P rotator cuff repair bilateral Family History Daughter Alcohol abuse Chronic headache Father Heart disease Mother Alcohol abuse Social History Smoking/Tobacco Use Status: Current every day Tobacco Type: cigarettes Tobacco: How many years used: 68 Quit status: not considering quitting Smoking risk assessment performed?: Yes Alcohol Intake: never Drug use: Never Substance use type: does not use Household members: children Housing: house Number of Children: 2 Communication Needs: Corrective Lenses Pets and animals: Yes Pets and animals: cat(s) Current gender identity: female What is your relationship status?: Panel score (0-1 are the most socially isolated patients): 0 What type of physical activity do you participate in: none Seatbelt use: always Drive intox or ride w/intox bull driver: Yes Working smoke detector in home: Yes Fire extinguisher in home: Yes Carbon monox detector in home: Yes Do you feel safe at home: Yes Do you feel safe in your relationship?: Yes
== END 2022-03-26 15:40 | disposition home or self-care (01) | DRG 693 ==
LOC: ER 05:02 → MS 05:33
PROVIDERS: Admitting Provider Family Medicine; Emergency Provider Student in an Organized Health Care Education/Training Program; PCP Family Medicine; Visit Provider Family Medicine
DX: J18.9 Pneumonia, unspecified organism; J98.11 Atelectasis; I25.10 Atherosclerotic heart disease of native coronary artery without angina pectoris; N13.30 Unspecified hydronephrosis; I10 Essential (primary) hypertension; I71.43 Infrarenal abdominal aortic aneurysm, without rupture; M54.50 Low back pain, unspecified; I25.2 Old myocardial infarction; Z95.5 Presence of coronary angioplasty implant and graft; M79.7 Fibromyalgia; E78.5 Hyperlipidemia, unspecified; K21.9 Gastro-esophageal reflux disease without esophagitis; G25.81 Restless legs syndrome; G43.909 Migraine, unspecified, not intractable, without status migrainosus; F17.210 Nicotine dependence, cigarettes, uncomplicated; J43.9 Emphysema, unspecified; Z87.442 Personal history of urinary calculi; F10.21 Alcohol dependence, in remission; M81.0 Age-related osteoporosis without current pathological fracture
CPT/HCPCS: 36415; 80053; 87635; 96361; 96374; 96376; 99223; 99285; 74177; 81003; 85025; 99235; J1885; J2270; J3490

== ENCOUNTER 2022-08-23 16:54 | Emergency (ER) | payer OTHER, MEDICAID, SELFPAY ==
[2022-08-23] VITALS (17 sets, daily range): BP systolic 133–167; BP diastolic 57–89; PULSE 71–82; RESP 15–41; TEMP 36.3; O2SAT 97–99
--- NOTE | 2022-08-23 16:45 | RT.EKG_ITS ---
APPROVED REPORT Exam: Resting ECG Reason for Exam: chest pain Patient Location: E HR:77 bpm ECG Measurements Heart Rate 77 AXIS MT 144 P 87 QRSd 74 QRS 91 QT 395 T 32 QTc 441 Conclusion Sinus rhythm...normal P axis, V-rate 60- 99 Multiform ventricular premature complexes...short R-R, variable morphology Anterior infarct, old...Q >40mS, abnormal ST-T, V2-V5 ST elevation V1-6, aVL with depression inferiorly: STEMI
[2022-08-23] MEDS: Aspirin 81 MG CHEW (17:04)
[2022-08-23] MEDS: nitroGLYcerin in D5W 50 MG/250 ML BTL IV (17:37)
[2022-08-23] MEDS: Clopidogrel 75 MG TAB PO (17:37)
[2022-08-23] MEDS: Tenecteplase 50 MG KIT 30 MG IVP (17:41)
[2022-08-23] MEDS: MORPHine 10 MG/ML VIAL 2 MG IVP (17:41)
--- NOTE | 2022-08-23 17:51 | ED.GENADUL_ITS ---
Discharge Plan Disposition Patient Disposition: Transfer-Acute Inpatient Care Specific Acute Inpt Facility: [facility] Condition: Stable Discharge Details Clinical Impression: ST elevation (STEMI) myocardial infarction Primary Care Provider: Pavan Ybarra ED Provider: Mehreen Owusu Home Meds and New Rx's Prescriptions: Continued nitroglycerin [Nitrostat] 0.4 mg tablet, sublingual 0.4 mg Sublingual Q5 MIN PRN X3 Qty: 25 5RF Hold Instructions: Home Medication placed on hold at Doctor's office Rx Instructions: take one tab for chest pain, call 911, may repeat tab q5mins prn for two more doses tramadol 50 mg tablet 50 mg PO TID PRN (Reason: pain) Qty: 30 3RF ipratropium-albuterol 0.5 mg-3 mg(2.5 mg base)/3 mL solution for nebulization 3 ml IH Q4H PRN (Reason: wheezing) Qty: 180 3RF lovastatin 40 mg tablet 80 mg PO DAILY Qty: 180 3RF Hold Instructions: Home Medication placed on hold at Doctor's office Rx Instructions: two tablets daily to reduce risk of recurrent cardiovascular events albuterol sulfate [ProAir HFA] 90 mcg/actuation HFA aerosol inhaler 2 puff Inhalation Q4H PRN Qty: 2 6RF Rx Instructions: for reactive airways, wheezing No Action ticagrelor 90 mg tablet 90 mg PO BID Patient Comments: 08/28/22 [facility] s/p stent on 08/23/22 and MD RH famotidine 20 mg tablet 20 mg PO DAILY Patient Comments: 08/28/22 [facility] D/C S/P MD RH aspirin 81 mg tablet,delayed release (DR/EC) 81 mg PO DAILY clopidogrel 75 mg tablet 75 mg PO DAILY metoprolol succinate 25 mg tablet extended release 24 hr 25 mg PO DAILY spironolactone 25 mg tablet 12.5 mg PO DAILY Discharge Data Discharge Date/Time-TO BE ENTERED AT DEPARTURE: 08/23/22 18:17 Medical Decision Making Case discussed with the patient and her daughter, both relative and direct contraindications to TNK discussed with them. She is a good candidate for the same and it has been administered after the patient concurred. The case was discussed with Dr. Woods from cardiology at [facility]. She requested 75 mg of Plavix and a nitroglycerin drip. ASA and TNK had already been given. We are attempting to get the patient pain-free with both nitroglycerin and morphine. DAR is on route and the patient will be admitted to Dr. Rubalcava at [facility]. Medical Records Medical records reviewed: Yes I reviewed the patient's medical records. Imaging Data Radiologic Study: My impression: Not done prior to tsfr, DAR arrived very quickly Lab Data Lab results narrative: Trop elevated, WBC mildly elevated, Mag mildly low ECG Data Attestation: I personally reviewed and interpreted this ECG (s) as follows: (STEMI with ST elevation V1-5, aVL, and inferior depression) HPI General Date/Time Provider Initiated Documentation: 08/23/22 17:01 . HPI Narrative: This 77-year-old female patient presents with a chief complaint of substernal chest heaviness that began about an hour prior to arrival. The patient tells me that she was in her garden and felt fine but when she started up the steps to go into the house she began having chest pain. She states that first she felt that her heart was racing and she later felt this again. She does not feel like it is racing in the emergency department and when I look at the monitor her heart rate is 80. She has a history of coronary artery disease with a prior stent. It is unclear where the stent is located. She is on medications for hy pertension and hypercholesterolemia. Patient is a 2 pack/day smoker and has a history of COPD. 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 She denies shortness of breath. The pain does not radiate anywhere except for her epigastrium. She has had no fever or URI symptoms. She has no abdominal pain except the epigastric discomfort. She has had no nausea or vomiting. She has no pedal edema or calf pain. Related Data Home Medications Medication Instructions Recorded Confirmed nitroglycerin 0.4 mg sublingual 0.4 mg sublingual Q5 MIN PRN X3 03/14/18 08/23/22 tablet (Nitrostat) #25 tabs ipratropium 0.5 mg-albuterol 3 mg 3 ml inhalation Q4H PRN wheezing 12/16/18 08/23/22 (2.5 mg base)/3 mL nebulization #180 mL soln albuterol sulfate 90 mcg/actuation 2 puff inhalation Q4H PRN 01/21/22 08/23/22 aerosol inhaler (ProAir HFA) wheezing, shortness of breath #2 units lovastatin 40 mg tablet 80 mg PO DAILY #180 tab-caps 03/23/22 08/23/22 tramadol 50 mg tablet 50 mg PO TID PRN pain #30 tabs 07/14/22 08/23/22 aspirin 81 mg tablet,delayed 81 mg PO DAILY 08/28/22 release clopidogrel 75 mg tablet 75 mg PO DAILY 08/28/22 famotidine 20 mg tablet 20 mg PO DAILY 08/28/22 metoprolol succinate 25 mg 25 mg PO DAILY 08/28/22 tablet,extended release 24 hr spironolactone 25 mg tablet 12.5 mg PO DAILY 08/28/22 ticagrelor 90 mg tablet 90 mg PO BID 08/28/22 Previous Rx's Medication Instructions Recorded nitroglycerin 0.4 mg sublingual 0.4 mg sublingual Q5 MIN PRN X3 03/14/18 tablet (Nitrostat) #25 tabs ipratropium 0.5 mg-albuterol 3 mg 3 ml inhalation Q4H PRN wheezing 12/16/18 (2.5 mg base)/3 mL nebulization #180 mL soln albuterol sulfate 90 mcg/actuation 2 puff inhalation Q4H PRN 01/21/22 aerosol inhaler (ProAir HFA) wheezing, shortness of breath #2 units lovastatin 40 mg tablet 80 mg PO DAILY #180 tab-caps 03/23/22 tramadol 50 mg tablet 50 mg PO TID PRN pain #30 tabs 07/14/22 Allergies Allergy/AdvReac Type Severity Reaction Status Date / Time sumatriptan [From Imitrex] Allergy Severe caused Verified 08/23/22 17:09 Heart Attack chicken derived Allergy Unknown unknown Verified 08/23/22 17:09 Sulfa (Sulfonamide Allergy Unknown unknown Verified 08/23/22 17:09 Antibiotics) amlodipine AdvReac Intermediate orthostatic Verified 08/23/22 17:09 hypotension promethazine HCl AdvReac Unknown GI upset Verified 08/23/22 17:09 [From Phenergan] General Stated Complaint: Chest Pain DONTE: 2 Review of Systems Constitutional Constitutional: Denies chills, Denies fever(s), Denies headache(s) and Denies weakness Eyes Eyes: Denies diplopia and Reports other (no redness) ENT Ears, Nose, Mouth, and Throat: Denies otalgia, Denies headache(s), Denies nasal congestion, Denies nasal discharge, Denies neck pain and Denies sore throat Cardiovascular Cardiovascular: Reports chest pain, Reports palpitations (Intermittent) and Denies dyspnea Respiratory Respiratory: Denies cough and Denies dyspnea Gastrointestinal Gastrointestinal: Denies abdominal pain, Denies diarrhea, Denies nausea and Denies vomiting Genitourinary Genitourinary: Denies dysuria Musculoskeletal Musculoskeletal: Denies myalgias, Denies muscle weakness, Denies neck pain, Denies numbness and Reports other (edema) Comments: No back pain Integumentary/Breasts Skin/Breast: Denies change in pigmentation and Denies rash Neurologic Neurologic: Denies headache(s), Denies numbness and Denies weakness Endocrine Endocrine: Reports palpitations (Intermittent) PFSH All Active Problems ST elevation (STEMI) myocardial infarction (Acute) 08/23/[address] [facility] w anterior MD for stent to LAD, D1 70%, D2 80%, [facility] 08/24/22 ER 32% pt does not want ICD, RH Hydronephrosis, left (Chronic) Acute left flank pain (Acute) Degenerative tear of acetabular labrum of right hip (Acute) MRI 10/07 AAA (abdominal aortic aneurysm) (Chronic) Incidental 4 cm finding in October 2019 Iron deficiency (Acute) Chronic low back pain (Acute 04/19/70) initial industrial accident in [place] ~1970; sacral/lumbar Chronic alcoholism in remission (Acute 10/24/12) no alcohol since 1981 Atherosclerosis of [place] coronary artery of [place] heart without angina pectoris (Chronic 04/19/97) First MD 1997; stent Apr 1999 RCA 90%, [facility]; MPI 07/2008: neg ischemia, nl wall motion; EF 74% History of Surgical Procedure (Chronic) a. Left rotator cuff surgery. b. Bilateral mastectomy. c. Abdominal hysterectomy. d. Carpal tunnel release surgery. CAD (coronary artery disease) (Chronic) Fibromyalgia (Chronic) Hypertension (Chronic) Hyperlipidemia (Chronic) GERD (gastroesophageal reflux disease) (Chronic) Restless legs syndrome (Chronic) Tobacco dependence (Acute 06/18/11) Idiopathic peripheral neuropathy (Acute 06/18/11) Non-rheumatic mitral regurgitation (Acute) mild on ECHO [facility] 2009; Repeat 03/2016: mild MR, TR, mod incr PA pressure Osteoporosis, unspecified (Acute 06/18/11) Other chronic pain (Acute 06/18/11) OPIATES OFF AND ON SINCE 1970; AT LEAST from 2005 to Mar 2014; TRAMADOL DAYS PRN; extra strength tylenol Migraine headache without aura (Acute) Migraine headache with aura (Acute) Chronic headache (Acute) Medication overuse headache (Acute) 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) Screening for colon cancer (Acute) Angina pectoris (Acute 12/04/13) Migraine, unspecified, not intractable, without status migrainosus (Acute 06/18/11) last neuro [place] 01/2009 Pain, joint, multiple sites (Acute 06/18/11) paraspinal thoracic pain Extrapyramidal and movement disorder, unspecified (Acute 06/18/11) REstless Leg Syndrome Dry skin (Acute 03/06/16) Dermatitis (Acute 06/18/11) Chronic daily headache (Acute 07/19/15) Adjustment disorder, unspecified (Acute 04/27/16) Adenomatous polyp of colon (Acute 06/18/03) Saige Giordano, tubular adenoma rectum 2003; rpt 2008 neg, rpt 11/2013 neg for polyps, ? when repeat, neg FH Dyspnea (Acute) COPD (chronic obstructive pulmonary disease) (Chronic) Diverticulitis (Chronic) Pain, low back (Chronic) Surgical History H/O heart artery stent H/O resection of rib S/P bilateral breast implants S/p bilateral carpal tunnel release S/P bilateral mastectomy for cystic disease S/P craniotomy S/P hysterectomy S/P rotator cuff repair bilateral Family History Daughter Alcohol abuse Chronic headache Father Heart disease Mother Alcohol abuse Social History Smoking/Tobacco Use Status: Current every day Tobacco Type: cigarettes Tobacco: How many years used: 68 Quit status: not considering quitting Smoking risk assessment performed?: Yes Alcohol Intake: never Drug use: Never Substance use type: does not use Household members: children Housing: house Number of Children: 2 Communication Needs: Corrective Lenses Pets and animals: Yes Pets and animals: cat(s) Current gender identity: female What is your relationship status?: Panel score (0-1 are the most socially isolated patients): 0 What type of physical activity do you participate in: none Seatbelt use: always 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 Working smoke detector in home: Yes Fire extinguisher in home: Yes Carbon monox detector in home: Yes Do you feel safe at home: Yes Do you feel safe in your relationship?: Yes Exam Const General: no acute distress, well developed, well groomed and not in acute distress Nutritional Appearance: well nourished Orientation: alert and oriented x3 HENMT Head: normocephalic and atraumatic Ears: external ears normal Mouth: oropharynx normal and moist mucous membranes Throat: posterior oropharynx normal Eyes Conjunctivae: conjunctivae normal Neck Neck: full ROM and supple Chest Chest: normal inspection of the chest and normal palpation of entire chest wall Resp Effort & Inspection: normal respiratory effort Auscultation: clear to auscultation bilaterally Cardio Rate: regular rate Rhythm: regular rhythm Heart Sounds: no murmurs and no rubs GI Inspection: normal to inspection Palpation: soft, nontender and other (non distended) Auscultation: normal bowel sounds Skin General skin exam: no rashes or lesions noted and other (pink, warm, dry) Neuro General: patient alert, patient awake and patient oriented x3 Speech: speech normal Motor: other (ESQUIVEL) Sensory Exam: no sensory deficits noted Extrem General: normal to inspection, full ROM and pedal edema present Psych Mental Status: mental status grossly normal Speech and Movement: speech and movement normal Affect: normal affect Course Vital Signs Vital signs: Vital Signs Temperature 36.3 C L 08/23/22 16:56 Pulse 77 08/23/22 16:56 Respiratory Rate 24 08/23/22 16:56 Blood Pressure 152/81 H 08/23/22 16:56 Pulse Oximetry 97 08/23/22 16:56 Temperature 36.3 C L 08/23/22 16:56 Temperature Source Skin 08/23/22 16:56 Pulse 74 05/07/23 17:15 Pulse 77 08/23/22 17:20 Respiratory Rate 20 08/23/22 17:20 Respiratory Effort Short of Breath 08/23/22 17:21 Respiratory Depth Normal 08/23/22 17:11 Respiratory Pattern Normal 08/23/22 17:11 Blood Pressure 163/85 H 08/23/22 17:15 Blood Pressure Mean 105 08/23/22 17:15 Pulse Oximetry 99 08/23/22 17:20 Oxygen Delivery Method Room Air 08/23/22 16:56 Oxygen Flow Rate 0 08/23/22 16:56 Pain Level 8 08/23/22 16:56 Lab/Test Results Lab/Test Results: EKG: Normal sinus rhythm at 75, PVCs, multifocal, ST elevation in V1 through 5 with a half blocks and he 6 and aVL, ST depression inferiorly consistent with STEMI Critical Care Time Critical Care Time Critical Care Time: Yes Total Critical Care Time: 45 Attestation: Medical record and test review, discussion with patient and family, nursing and [facility] consultation
[2022-08-23 18:01] LABS: Abs Immature Grans 0.05 10^3/uL (0.0-0.06); Absolute Basophil Count 0.08 10^3/uL (0.0-0.2); Absolute Eosinophil Count 0.18 10^3/uL (0.0-0.7); Absolute Lymphocyte Count 2.15 10^3/uL (1.2-3.4); Basophils % 0.6; Eosinophils % 1.3; HCT 43.5 % (36.0-46.0); HGB 14.8 g/dL (11.2-15.7); Immature Grans % 0.4; Lymphocytes % 15.5; MCH 30.6 pg (27.0-33.0); MCV 90 fL (80-95); MPV 9.6 fL (8.0-11.0); Monocytes % 4.3; Neutrophils % 77.9; Platelet Count 210 10^3/uL (130-400); RBC 4.83 10^6/uL (3.93-5.22); RDW 13.2 % (11.7-14.6); RDW-SD 42.6 fL; WBC 13.86 10^3/uL (4.4-10.8)
[2022-08-23] MEDS: Normal Saline 1,000 ML 30 ML IV (18:07)
[2022-08-23 18:09] LABS: PTT Activated 25.2 sec (21.5-31.9); Prothrombin Time 9.8 sec (9.3-11.0)
[2022-08-23 18:12] LABS: ALT 14 U/L (14-59); AST 21 U/L (15-37); Albumin 3.6 g/dL (3.4-5.0); Alkaline Phosphatase 63 U/L (46-116); Anion Gap 6.9 mmol/L (3-11); BUN 11 mg/dL (7-18); Bilirubin, Total 0.5 mg/dL (0.2-1.0); CO2 29.1 mmol/L (21.0-32.0); Calcium 9.5 mg/dL (8.5-10.1); Chloride 100 mmol/L (98-107); Estimated GFR 58.02 (mL/min/1.73m2); Glucose 124 mg/dL (74-106); Magnesium 1.6 mg/dL (1.8-2.4); Potassium 3.7 mmol/L (3.5-5.1); Sodium 136 mmol/L (136-145); Total Protein 7.1 g/dL (6.4-8.2)
[2022-08-23 18:13] LABS: Troponin I 1148 ng/L (<or=60)
== END 2022-08-23 18:17 | disposition short-term general hospital (02) ==
PROVIDERS: Emergency Provider Emergency Medicine; PCP Family Medicine
DX: F17.210 Nicotine dependence, cigarettes, uncomplicated; J44.9 Chronic obstructive pulmonary disease, unspecified; I10 Essential (primary) hypertension; I21.3 ST elevation (STEMI) myocardial infarction of unspecified site; I25.10 Atherosclerotic heart disease of native coronary artery without angina pectoris
CPT/HCPCS: 36415; 80053; 93005; 96374; 96375; 99291; 83735; 84484; 85025; 85610; 85730; 93010; J2270; J3101

== ENCOUNTER 2022-08-31 08:44 | Emergency (ER) | payer OTHER, SELFPAY ==
--- NOTE | 2022-08-31 08:30 | RT.EKG_ITS ---
APPROVED REPORT Exam: Resting ECG Reason for Exam: chest pain Patient Location: E HR:78 bpm ECG Measurements Heart Rate 78 AXIS OR 138 P 83 QRSd 114 QRS 95 QT 328 T -58 QTc 374 Conclusion Sinus rhythm...normal P axis, V-rate 60- 99 Ventricular premature complex...V complex w/ short R-R interval Incomplete right bundle branch block...QRSd >112, terminal axis(90,270) Anterolateral infarct, acute...ST >0.20mV, V2-V6,I,aVL. Sinus. Normal axis. 2mm ST elevation in anteiror leads. Reciprocal depressions in inferior leads. ++ STEMI++
[2022-08-31 08:44] VITALS: BP 127/62; PULSE 88; RESP 18; TEMP 36.6; O2SAT 98
--- NOTE | 2022-08-31 09:01 | ED.GENADUL_ITS ---
Discharge Plan Disposition Patient Disposition: Home Condition: Serious Discharge Details Clinical Impression: ST elevation (STEMI) myocardial infarction Primary Care Provider: Pavan Ybarra ED Provider: Vivi Arroyo Home Meds and New Rx's Prescriptions: Continued nitroglycerin [Nitrostat] 0.4 mg tablet, sublingual 0.4 mg Sublingual Q5 MIN PRN X3 Qty: 25 5RF Hold Instructions: Home Medication placed on hold at Doctor's office Rx Instructions: take one tab for chest pain, call 911, may repeat tab q5mins prn for two more doses tramadol 50 mg tablet 50 mg PO TID PRN (Reason: pain) Qty: 30 3RF ipratropium-albuterol 0.5 mg-3 mg(2.5 mg base)/3 mL solution for nebulization 3 ml IH Q4H PRN (Reason: wheezing) Qty: 180 3RF lovastatin 40 mg tablet 80 mg PO DAILY Qty: 180 3RF Hold Instructions: Home Medication placed on hold at Doctor's office Patient Comments: not on med list Rx Instructions: two tablets daily to reduce risk of recurrent cardiovascular events albuterol sulfate [ProAir HFA] 90 mcg/actuation HFA aerosol inhaler 2 puff Inhalation Q4H PRN Qty: 2 6RF Rx Instructions: for reactive airways, wheezing ticagrelor 90 mg tablet 90 mg PO BID Patient Comments: 08/28/22 [facility] s/p stent on 08/23/22 and AK RH not on med list famotidine 20 mg tablet 20 mg PO DAILY Patient Comments: 08/28/22 [facility] D/C S/P AK RH aspirin 81 mg tablet,delayed release (DR/EC) 81 mg PO DAILY clopidogrel 75 mg tablet 75 mg PO DAILY metoprolol succinate 25 mg tablet extended release 24 hr 25 mg PO DAILY spironolactone 25 mg tablet 12.5 mg PO DAILY atorvastatin 80 mg tablet 40 mg PO DAILY Patient Comments: TAKE ONE TABLET BY MOUTH EVERY EVENING Discharge Instructions Additional Instructions: As we discussed, I am concerned that you are having another heart attack as was noted noted in your EKG. Following your wishes, we will be transitioning to comfort measure care to help to prevent and relieve any discomfort you may have at home without further significant medical interventions. COLST form has been filed at the hospital and will be attached to this packet as well so you may keep 1 in your home. Please return if you have any pain that is unable to be managed or within your goals of care please return once again. Referral to palliative care/hospice has been sent and they will be coming to see you tomorrow to discuss managing at home and had to help manage your discomfort. Please keep your upcoming appointment with your primary care. Please continue with the medication as was recommended by Padmini Cabrales. It sounds like the medication that was too large for you to swallow was Plavix. You were given a dose here today. You may cut this pill to help make it easier to swallow. If you develop any new or worsening symptoms and would like further care, please return to the emergency department. Referrals: Pavan Ybarra, [Primary Care Provider] - Discharge Data Discharge Date/Time-TO BE ENTERED AT DEPARTURE: 08/31/22 12:33 Medical Decision Making Patient is a pleasant 77 year old female, brought in via EMS, with c/c of non- radiating CP that began at 0500. She was recently hospitalized at [facility], was d/c to home with VNA services on 08/28/22. She reports that she woke up, made herself a cup of tea and take care of her cats, was sitting down to smoke when she developed some chest discomfort. States that it did come on when in a seated position. Reports that the pain has been the same as when she had AK historically. She reports that she has had 4 in the past. Denies any radiation of pain. No nausea or vomiting. Is not actively having pain. Was given full dose aspirin by EMS. Patient was slightly hypertensive at the time they arrived so they held off on any nitro and the pain spontaneously resolved. On exam, patient is resting comfortably. She no acute distress and he modynamically stable. She denies active chest pain at this time. Lungs are clear. Normal cardiac exam. No lower extremity edema. She is quite frail and thin. Past medical history pertinent for STEMI, AAA, chronic alcoholism in remission, fibromyalgia, hypertension, hyperlipidemia, GERD, migraines, COPD. Patient lives alone at home, reports that she has a daughter that is supportive and a si ster. ECG was reviewed by myself as well as Dr. Glass concerning for STEMI. Recent [facility] note advises that the patient did have recurrent ST elevation which seems to be worsening concerning for incomplete vascularization 4 days postoperative. Troponin was also rising. However, patient preferred to go home with VNA services and goals of care being comfort rather than life prolongation. Patient expresses wish now for the same. She does not want to have further intervention. She does not want to have any type of procedures. With prefer to hold off on any imaging, including cxr. Labs were already drawn. She does report that the meds she was d/c from with recently have been difficult to take. There is one that is too large. She wants to continue with her medications. Patient and i had a lengthy conversation around her goals of care. She reiterates what she had said at . Goals of care is to be at home and as independent as possible. She and I discussed the concerning findings on her ECG at length. She is aware of the concerns and risks of a STEMI but does not want to seek any further intervention. States she has had a long life and feels that she would not want to be hospitalized or intervention. She wants to be able to pass at home, naturally. She demonstrates capacity and fore thought in this. Spoke with patient's daughter, Elba, at patient request. She is concerned that her mother is having some difficulty getting around at home. VNA has not yet started, will touch base with care management. Daughter voices understanding in her mothers choice although she would like for her to have more services and stop being so, ornery, but sounds supportive in her choices. Troponin elevated at 1285. No blue top tube was obtained d/t issues with collection, this was held after based on patients wishes. Spoke with pharmacist. Ran through list of new medications from . Pharamacist advised that large medication would be Plavix. That advised that she could cut or crush the medication. Discussed with patient, will give her a dose now. Spoke with hospice, patient agreeable to meeting with them. Her concern is being in pain at home and not being able to meet her goal of independence and requiring transfer to the hospital once again. Hospice team is able to meet with her tomorrow. Care management ensured that VNA has been referred. Patient completed a COLST form together. Of note, patient does not want to have any CPR and would want to be a DNR. She does not want any type of intubation, even for a trial period. She does not want any feeding tubes or artificial nutrition. She was unclear on her wish for hydration. Her primary concern is being independent in her own home is much as possible. She wishes to in her home. She wants to remain comfortable and is agreeable to doing so with the assistance of hospice care. Spoke again with daughter Elba. She is going to pick Arelis up. She is agreeable with this plan. She will continue with the medications as previously prescribed. She is aware that even with change in goals of care, she may return at any time. All of her questions and concerns were addressed, she is in agreement with this plan. [facility] General Date/Time Provider Initiated Documentation: 08/31/22 09:32 . Limitations to Documentation: no limitations . Information obtained by: patient, family, EMS, RN notes reviewed and old records reviewed . History of Present Illness 77 year old F presents to the emergency department with the chief complaint of chest pain, described as mild (was worse, max 7, now denies any discomfort) and similar to prior episodes, Quality is described as sharp, and is localized to the chest. Patient reports no radiation. Patient started experiencing this hour(s) (0500) and it has been now resolved. No relieving factors improve symptom(s), No exacerbating factors reported . Patient notes no other symptoms.. Patient did receive the following treatments prior to arrival, other (ASA) Related Data Home Medications Medication Instructions Recorded Confirmed nitroglycerin 0.4 mg sublingual 0.4 mg sublingual Q5 MIN PRN X3 03/14/18 08/31/22 tablet (Nitrostat) #25 tabs ipratropium 0.5 mg-albuterol 3 mg 3 ml inhalation Q4H PRN wheezing 12/16/18 08/31/22 (2.5 mg base)/3 mL nebulization #180 mL soln albuterol sulfate 90 mcg/actuation 2 puff inhalation Q4H PRN 01/21/22 08/31/22 aerosol inhaler (ProAir HFA) wheezing, shortness of breath #2 units lovastatin 40 mg tablet 80 mg PO DAILY #180 tab-caps 03/23/22 08/31/22 tramadol 50 mg tablet 50 mg PO TID PRN pain #30 tabs 07/14/22 08/31/22 aspirin 81 mg tablet,delayed 81 mg PO DAILY 08/28/22 08/31/22 release clopidogrel 75 mg tablet 75 mg PO DAILY 08/28/22 08/31/22 famotidine 20 mg tablet 20 mg PO DAILY 08/28/22 08/31/22 metoprolol succinate 25 mg 25 mg PO DAILY 08/28/22 08/31/22 tablet,extended release 24 hr spironolactone 25 mg tablet 12.5 mg PO DAILY 08/28/22 08/31/22 ticagrelor 90 mg tablet 90 mg PO BID 08/28/22 08/31/22 atorvastatin 80 mg tablet 40 mg PO DAILY 08/31/22 08/31/22 Previous Rx's Medication Instructions Recorded nitroglycerin 0.4 mg sublingual 0.4 mg sublingual Q5 MIN PRN X3 03/14/18 tablet (Nitrostat) #25 tabs ipratropium 0.5 mg-albuterol 3 mg 3 ml inhalation Q4H PRN wheezing 12/16/18 (2.5 mg base)/3 mL nebulization #180 mL soln albuterol sulfate 90 mcg/actuation 2 puff inhalation Q4H PRN 01/21/22 aerosol inhaler (ProAir HFA) wheezing, shortness of breath #2 units lovastatin 40 mg tablet 80 mg PO DAILY #180 tab-caps 03/23/22 tramadol 50 mg tablet 50 mg PO TID PRN pain #30 tabs 07/14/22 Allergies Allergy/AdvReac Type Severity Reaction Status Date / Time sumatriptan [From Imitrex] Allergy Severe caused Verified 08/23/22 17:09 Heart Attack chicken derived Allergy Unknown unknown Verified 08/23/22 17:09 Sulfa (Sulfonamide Allergy Unknown unknown Verified 08/23/22 17:09 Antibiotics) amlodipine AdvReac Intermediate orthostatic Verified 08/23/22 17:09 hypotension promethazine HCl AdvReac Unknown GI upset Verified 08/23/22 17:09 [From Phenergan] General Stated Complaint: Chest Pain DONTE: 3 Review of Systems Constitutional Constitutional: Reports as per HPI, Denies chills, Denies fever(s), Denies headache(s) and Denies poor appetite ENT Ears, Nose, Mouth, and Throat: Denies dizziness and Denies headache(s) Cardiovascular Cardiovascular: Reports as per HPI and Denies dyspnea Respiratory Respiratory: Reports as per HPI, Denies chest congestion, Denies cough, Denies pain on inspiration and Denies dyspnea Gastrointestinal Gastrointestinal: Reports as per HPI, Denies abdominal pain, Denies diarrhea, Denies nausea and Denies vomiting Musculoskeletal Musculoskeletal: Reports as per HPI and Denies back pain Integumentary/Breasts Skin/Breast: Reports as per HPI and Denies rash Neurologic Neurologic: Reports as per HPI, Denies dizziness and Denies headache(s) PFSH All Active Problems (Updated 08/31/22 @ 12:06 by SHERLY Nair) ST elevation (STEMI) myocardial infarction (Acute) 08/23/22 to [facility] w anterior AK for stent to LAD, D1 70%, D2 80%, LUZMARIA 08/24/22 ER 32% pt does not want ICD, RH Hydronephrosis, left (Chronic) Acute left flank pain (Acute) Degenerative tear of acetabular labrum of right hip (Acute) MRI 10/07 AAA (abdominal aortic aneurysm) (Chronic) Incidental 4 cm finding in October 2019 Iron deficiency (Acute) Chronic low back pain (Acute 04/19/70) initial industrial accident in [place] ~1970; sacral/lumbar Chronic alcoholism in remission (Acute 10/24/12) no alcohol since 1981 Atherosclerosis of inupiat coronary artery of inupiat heart without angina pectoris (Chronic 04/19/97) First AK 1997; stent Apr 1999 RCA 90%, [facility]; MPI 07/2008: neg ischemia, nl wall motion; EF 74% History of Surgical Procedure (Chronic) a. Left rotator cuff surgery. b. Bilateral mastectomy. c. Abdominal hysterectomy. d. Carpal tunnel release surgery. CAD (coronary artery disease) (Chronic) Fibromyalgia (Chronic) Hypertension (Chronic) Hyperlipidemia (Chronic) GERD (gastroesophageal reflux disease) (Chronic) Restless legs syndrome (Chronic) Tobacco dependence (Acute 06/18/11) Idiopathic peripheral neuropathy (Acute 06/18/11) Non-rheumatic mitral regurgitation (Acute) mild on ECHO [facility] 2009; Repeat 03/2016: mild MR, TR, mod incr SHERLY pressure Osteoporosis, unspecified (Acute 06/18/11) Other chronic pain (Acute 06/18/11) OPIATES OFF AND ON SINCE 1970; AT LEAST from 2005 to Mar 2014; TRAMADOL DAYS PRN; extra strength tylenol Migraine headache without aura (Acute) Migraine headache with aura (Acute) Chronic headache (Acute) Medication overuse headache (Acute) 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) Screening for colon cancer (Acute) Angina pectoris (Acute 12/04/13) Migraine, unspecified, not intractable, without status migrainosus (Acute 06/18/11) last neuro [place] 01/2009 Pain, joint, multiple sites (Acute 06/18/11) paraspinal thoracic pain Extrapyramidal and movement disorder, unspecified (Acute 06/18/11) REstless Leg Syndrome Dry skin (Acute 03/06/16) Dermatitis (Acute 06/18/11) Chronic daily headache (Acute 07/19/15) Adjustment disorder, unspecified (Acute 04/27/16) Adenomatous polyp of colon (Acute 06/18/03) Saige Giordano, tubular adenoma rectum 2003; rpt 2008 neg, rpt 11/2013 neg for polyps, ? when repeat, neg FH Dyspnea (Acute) COPD (chronic obstructive pulmonary disease) (Chronic) Diverticulitis (Chronic) Pain, low back (Chronic) Surgical History H/O heart artery stent H/O resection of rib S/P bilateral breast implants S/p bilateral carpal tunnel release S/P bilateral mastectomy for cystic disease S/P craniotomy S/P hysterectomy S/P rotator cuff repair bilateral Family History Daughter Alcohol abuse Chronic headache Father Heart disease Mother Alcohol abuse Social History Smoking/Tobacco Use Status: Current every day Tobacco Type: cigarettes Tobacco: How many years used: 68 Quit status: not considering quitting Smoking risk assessment performed?: Yes Alcohol Intake: never Drug use: Never Substance use type: does not use Household members: children Housing: house Number of Children: 2 Communication Needs: Corrective Lenses Pets and animals: Yes Pets and animals: cat(s) Current gender identity: female What is your relationship status?: Panel score (0-1 are the most socially isolated patients): 0 What type of physical activity do you participate in: none Seatbelt use: always Drive intox or ride w/intox form setter/driver: Yes Working smoke detector in home: Yes Fire extinguisher in home: Yes Carbon monox detector in home: Yes Do you feel safe at home: Yes Do you feel safe in your relationship?: Yes Exam Const General: cooperative, comfortable, no acute distress, well developed and ill appearing chronically Nutritional Appearance: well nourished, cachectic and thin Orientation: alert, awake and oriented x3 HENCA Head: normal to inspection Ears: hearing grossly normal bilaterally Mouth: moist mucous membranes Chest Chest: normal inspection of the chest, normal palpation of entire chest wall and no crepitus Resp Effort & Inspection: normal respiratory effort, able to speak in complete sen tences and no respiratory distress Auscultation: clear to auscultation bilaterally, no rales, no rhonchi and no wheezes Cardio Rate: regular rate Rhythm: regular rhythm Heart Sounds: S1 normal and S2 normal GI Inspection: normal to inspection, no edema and non-distended Palpation: soft, no hepatosplenomegaly, not firm, no guarding, not rigid and nontender Auscultation: normal bowel sounds Back/Spine/Pelvis Back: no CVA tenderness Thoracic/Lumbar Spine: thoracic and lumbar spine normal to inspection Skin General skin exam: no rashes or lesions noted Trauma: no lacerations or abrasions Neuro General: patient alert, patient awake and patient oriented x3 Cognition: normal cognition Speech: speech normal Gait: normal gait Extrem General: normal to inspection, capillary refill normal, no pedal edema, no calf tenderness and normal gait Psych Appearance: grossly normal and well kempt Mental Status: mental status grossly normal Speech and Movement: speech and movement normal Course Vital Signs Vital signs: Vital Signs Temperature 36.6 C 08/31/22 08:44 Pulse 88 08/31/22 08:44 Respiratory Rate 18 08/31/22 08:44 Blood Pressure 127/62 08/31/22 08:44 Pulse Oximetry 98 08/31/22 08:44 Temperature 36.6 C 08/31/22 08:44 Temperature Source Skin 08/31/22 08:44 Pulse 88 08/31/22 08:44 Respiratory Rate 18 08/31/22 08:44 Blood Pressure 127/62 08/31/22 08:44 Blood Pressure Position Supine 08/31/22 08:44 Pulse Oximetry 98 08/31/22 08:44 Oxygen Delivery Method Room Air 08/31/22 08:44 Oxygen Flow Rate 0 08/31/22 08:44 Pain Level 0 08/31/22 08:44
[2022-08-31 09:10] LABS: Abs Immature Grans 0.03 10^3/uL (0.0-0.06); Absolute Basophil Count 0.07 10^3/uL (0.0-0.2); Absolute Eosinophil Count 0.27 10^3/uL (0.0-0.7); Absolute Lymphocyte Count 1.21 10^3/uL (1.2-3.4); Absolute Monocyte Count 0.48 10^3/uL (0.1-0.8); Absolute Neutrophil Count 6.47 10^3/uL (1.2-6.7); Basophils % 0.8; Eosinophils % 3.2; HGB 14.5 g/dL (11.2-15.7); Immature Grans % 0.4; Lymphocytes % 14.2; MCH 29.3 pg (27.0-33.0); MCHC 33.7 % (32.0-36.0); MCV 87 fL (80-95); MPV 9.1 fL (8.0-11.0); Monocytes % 5.6; Neutrophils % 75.8; Platelet Count 287 10^3/uL (130-400); RBC 4.95 10^6/uL (3.93-5.22); RDW 13.5 % (11.7-14.6); RDW-SD 42.3 fL; WBC 8.53 10^3/uL (4.4-10.8)
[2022-08-31 09:32] LABS: ALT 20 U/L (14-59); AST 22 U/L (15-37); Albumin 3.1 g/dL (3.4-5.0); Alkaline Phosphatase 58 U/L (46-116); Anion Gap 3.9 mmol/L (3-11); BUN 14 mg/dL (7-18); Bilirubin, Total 0.8 mg/dL (0.2-1.0); CO2 30.1 mmol/L (21.0-32.0); Calcium 9.1 mg/dL (8.5-10.1); Chloride 102 mmol/L (98-107); Estimated GFR 58.02 (mL/min/1.73m2); Glucose 118 mg/dL (74-106); Magnesium 1.7 mg/dL (1.8-2.4); Potassium 4.3 mmol/L (3.5-5.1); Sodium 136 mmol/L (136-145); Total Protein 6.5 g/dL (6.4-8.2)
[2022-08-31 09:36] LABS: Troponin I 1285 ng/L (<or=60)
[2022-08-31 10:03] VITALS: RESP 16
[2022-08-31] MEDS: Clopidogrel 75 MG TAB PO (10:03)
--- NOTE | 2022-08-31 10:35 | W.EDPROG ---
Date of service: 08/31/22 Time of Service: 10:36 Narrative CM consult for consideration of service planning as per provider, patient expressing wanting to return home and no longer seek medical intervention. Reviewed options with SAMANTHA Trinidad who requested this process description writer to coordinate home health services, COLST and Hospice consult. NICOLETTE connected with Igor RN at Hospice who stated she could meet with Arelis tomorrow; CM transferred Igor directly to [facility]. NICOLETTE also spoke with Danie of [facility] Intake who confirmed new VNA orders from [facility] discharge, though stated Arelis had declined services post discharge. Danie reported that Igor would complete consult tomorrow and then decide if home health services would be appropriate or if Arelis would admit to Hospice. CM advised Vivi of plan, and provided COLST form for completion. Discharge Plan Discharge Details Chief Complaint: Chest Pain Primary Care Provider: Pavan Ybarra ED Provider: Vivi Arroyo Home Meds and New Rx's Prescriptions: No Action nitroglycerin [Nitrostat] 0.4 mg tablet, sublingual 0.4 mg Sublingual Q5 MIN PRN X3 Qty: 25 5RF Hold Instructions: Home Medication placed on hold at Doctor's office Rx Instructions: take one tab for chest pain, call 911, may repeat tab q5mins prn for two more doses tramadol 50 mg tablet 50 mg PO TID PRN (Reason: pain) Qty: 30 3RF ipratropium-albuterol 0.5 mg-3 mg(2.5 mg base)/3 mL solution for nebulization 3 ml IH Q4H PRN (Reason: wheezing) Qty: 180 3RF lovastatin 40 mg tablet 80 mg PO DAILY Qty: 180 3RF Hold Instructions: Home Medication placed on hold at Doctor's office Patient Comments: not on med list Rx Instructions: two tablets daily to reduce risk of recurrent cardiovascular events albuterol sulfate [ProAir HFA] 90 mcg/actuation HFA aerosol inhaler 2 puff Inhalation Q4H PRN Qty: 2 6RF Rx Instructions: for reactive airways, wheezing ticagrelor 90 mg tablet 90 mg PO BID Patient Comments: 08/28/22 [facility] s/p stent on 08/23/22 and [place] RH not on med list famotidine 20 mg tablet 20 mg PO DAILY Patient Comments: 08/28/22 [facility] D/C S/P MA RH aspirin 81 mg tablet,delayed release (DR/EC) 81 mg PO DAILY clopidogrel 75 mg tablet 75 mg PO DAILY metoprolol succinate 25 mg tablet extended release 24 hr 25 mg PO DAILY spironolactone 25 mg tablet 12.5 mg PO DAILY atorvastatin 80 mg tablet 40 mg PO DAILY Patient Comments: TAKE ONE TABLET BY MOUTH EVERY EVENING
[2022-08-31 12:32] VITALS: BP 100/55; PULSE 69; RESP 18; O2SAT 96
--- NOTE | 2022-08-31 18:19 | NUR.NOTE ---
Nursing Note:original form
--- NOTE | 2022-08-31 18:20 | NUR.NOTE ---
Nursing Note: original legal forms uploaded on 08/31/ mailed to pt
== END 2022-08-31 12:33 | disposition home or self-care (01) ==
PROVIDERS: Emergency Provider Physician Assistant; PCP Family Medicine
DX: I22.9 Subsequent ST elevation (STEMI) myocardial infarction of unspecified site (principal); R07.9 Chest pain, unspecified
CPT/HCPCS: 80053; 93005; 99283; 83735; 84484; 85025; 85610; 85730; 93010; 99285